=== PATIENT | female | born 1975 | race African-American/Black ===

== ENCOUNTER 2016-10-02 10:22 | Emergency (ER) | payer MEDICAID ==
[2016-06-20 19:53] VITALS: BMI 24.2
[~2016-10-02 10:22] MED LIST: AMBIEN5 MG PO; BUSPAR5 MG; CARAFATE1 G PO; FLAGYL500 MG PO; GLUCOPHAGE500 MG PO; PRILOSEC20 MG PO; RISPERDAL0.25 MG PO; ZOFRAN8 MG PO
[2016-10-02 11:11] LABS: BASOPHILS 0.3 % (0.0-2.0); EOSINOPHILS 0.6 % (0-7); HEMATOCRIT 43.7 % (36.0-48.0); HEMOGLOBIN 14.5 g/dL (12-16); IMMATURE GRANULOCYTES 0.3 % (0-5); MCH 31.3 pg (26.0-34.0); MCHC 33.2 g/dL (31.0-37.0); MCV 94.2 fL (80.0-100.0); MEAN PLATELET VOLUME 9.1 fL (7.4-10.4); MONOCYTES 4.8 % (2-11); PLATELET COUNT 346 10x3/uL (130-400); RBC 4.64 10x6/uL (4.00-5.40); WBC 7.3 10x3/uL (4.8-10.8)
[2016-10-02 11:20] LABS: ALBUMIN 4.3 g/dL (3.4-5.0); ALKALINE PHOSPHATASE 95 U/L (46-116); ALT (SGPT) 20 U/L (10-68); AMYLASE - SERUM 105 U/L (25-115); BILIRUBIN - TOTAL 0.43 mg/dL (0.2-1.3); CALC OSMOLALITY 272 mosm/kg (275-300); CALCIUM 10.5 mg/dL (8.5-10.1); CARBON DIOXIDE 24.5 mmol/L (21.0-32.0); CHLORIDE - SERUM 100 mmol/L (98-107); CREATININE - SERUM 0.7 mg/dL (0.6-1.3); GLUCOSE 114 mg/dL (74-106); LIPASE 163 U/L (73-393); POTASSIUM - SERUM 4.2 mmol/L (3.5-5.1); PROTEIN - SERUM 9.4 g/dL (6.4-8.2); SODIUM 137 mmol/L (136-145); UREA NITROGEN 8 mg/dL (7-18); eGFR NON AFRICAN AMERICAN > 90 mL/min (90-120)
[2016-10-02 11:31] LABS: APPEARANCE HAZY (CLEAR); BACTERIA MODERATE /hpf (NONE SEEN); BILIRUBIN NEGATIVE (NEGATIVE); COLOR YELLOW (YELLOW); GLUCOSE NEGATIVE (NEGATIVE); KETONE MODERATE mg/dL (NEGATIVE); LEUKOCYTE ESTERASE TRACE (NEGATIVE); MUCUS >1+ /lpf (NONE SEEN); NITRITE NEGATIVE (NEGATIVE); PROTEIN TRACE mg/dL (NEGATIVE); SPECIFIC GRAVITY 1.015 (1.005-1.020); UROBILINOGEN NORMAL (NORMAL); WHITE CELLS - URINE OCC /hpf (0-5)
== END 2016-10-02 14:38 | disposition home or self-care (01) ==
LOC: D.ER 10:22
PROVIDERS: Emergency Medicine
DX: R10.9 Unspecified abdominal pain (principal); R05 Cough; E11.9 Type 2 diabetes mellitus without complications; K31.84 Gastroparesis; F41.9 Anxiety disorder, unspecified; K21.9 Gastro-esophageal reflux disease without esophagitis; G47.00 Insomnia, unspecified; K27.9 Peptic ulcer, site unspecified, unspecified as acute or chronic, without hemorrhage or perforation; F17.200 Nicotine dependence, unspecified, uncomplicated

== ENCOUNTER 2017-04-23 14:17 | Emergency (ER) | payer MEDICAID ==
[2016-06-20 19:53] VITALS: BMI 24.2
[2017-04-23 15:14] LABS: ALBUMIN 4.1 g/dL (3.4-5.0); ALKALINE PHOSPHATASE 67 U/L (46-116); ALT (SGPT) 18 U/L (10-68); BILIRUBIN - TOTAL 0.61 mg/dL (0.2-1.3); CALC OSMOLALITY 279 mosm/kg (275-300); CALCIUM 9.3 mg/dL (8.5-10.1); CARBON DIOXIDE 19.5 mmol/L (21.0-32.0); CHLORIDE - SERUM 104 mmol/L (98-107); CREATININE - SERUM 0.9 mg/dL (0.6-1.3); GLUCOSE 108 mg/dL (74-106); POTASSIUM - SERUM 3.6 mmol/L (3.5-5.1); PROTEIN - SERUM 8.4 g/dL (6.4-8.2); SODIUM 140 mmol/L (136-145); UREA NITROGEN 12 mg/dL (7-18); eGFR NON AFRICAN AMERICAN 73 mL/min (90-120)
[2017-04-23 15:19] LABS: BASOPHILS 0.3 % (0-2); EOSINOPHILS 0 % (0-7); HEMATOCRIT 41.3 % (36.0-48.0); HEMOGLOBIN 13.9 g/dL (12-16); IMMATURE GRANULOCYTES 0.1 % (0-5); LYMPHOCYTES 32.5 % (15-50); MCH 32.8 pg (26.0-34.0); MCHC 33.7 g/dL (31.0-37.0); MCV 97.4 fL (80.0-100.0); MEAN PLATELET VOLUME 9.2 fL (7.4-10.4); MONOCYTES 4.8 % (2-11); NEUTROPHILS 62.3 % (40-80); PLATELET COUNT 323 10x3/uL (130-400); RBC 4.24 10x6/uL (4.00-5.40); RDW 12.8 % (11.5-14.5); WBC 7.6 10x3/uL (4.8-10.8)
[2017-04-23 15:26] LABS: CKMB 0.4 U/L (0.0-3.6); CREATINE KINASE 98 UL (21-215); TROPONIN-I < 0.017 ng/mL (0.000-0.060)
== END 2017-04-23 18:37 | disposition home or self-care (01) ==
LOC: D.ER 14:17
PROVIDERS: Emergency Medicine
DX: R07.89 Other chest pain (principal); T67.5XXA Heat exhaustion, unspecified, initial encounter; X58.XXXA Exposure to other specified factors, initial encounter; Y93.89 Activity, other specified; Y92.89 Other specified places as the place of occurrence of the external cause; E86.0 Dehydration; R10.9 Unspecified abdominal pain; R00.2 Palpitations; R06.00 Dyspnea, unspecified; E11.9 Type 2 diabetes mellitus without complications; K27.9 Peptic ulcer, site unspecified, unspecified as acute or chronic, without hemorrhage or perforation; K21.9 Gastro-esophageal reflux disease without esophagitis; F17.200 Nicotine dependence, unspecified, uncomplicated

== ENCOUNTER 2017-05-04 06:01 | Emergency (ER) | payer MEDICAID ==
[2016-06-20 19:53] VITALS: BMI 24.2
[2017-05-04 07:18] LABS: BASOPHILS 0.3 % (0-2); EOSINOPHILS 0.6 % (0-7); HEMATOCRIT 38.4 % (36.0-48.0); HEMOGLOBIN 12.9 g/dL (12-16); IMMATURE GRANULOCYTES 1.2 % (0-5); LYMPHOCYTES 30.4 % (15-50); MCH 33.1 pg (26.0-34.0); MCHC 33.6 g/dL (31.0-37.0); MCV 98.5 fL (80.0-100.0); NEUTROPHILS 61.5 % (40-80); PLATELET COUNT 305 10x3/uL (130-400); RDW 12.9 % (11.5-14.5); WBC 8.8 10x3/uL (4.8-10.8)
[2017-05-04 07:46] LABS: ALBUMIN 4.2 g/dL (3.4-5.0); ANION GAP 16.3 mmol/L (8-16); BILIRUBIN - TOTAL 0.7 mg/dL (0.2-1.3); CALCIUM 9.2 mg/dL (8.5-10.1); CREATININE - SERUM 0.9 mg/dL (0.6-1.3); POTASSIUM - SERUM 3.3 mmol/L (3.5-5.1); PROTEIN - SERUM 7.9 g/dL (6.4-8.2)
== END 2017-05-04 11:18 | disposition home or self-care (01) ==
LOC: D.ER 06:01
PROVIDERS: Emergency Medicine Emergency Medical Services
DX: R10.9 Unspecified abdominal pain (principal); R11.10 Vomiting, unspecified; E87.6 Hypokalemia; E11.9 Type 2 diabetes mellitus without complications; K21.9 Gastro-esophageal reflux disease without esophagitis; F17.200 Nicotine dependence, unspecified, uncomplicated

== ENCOUNTER 2017-05-05 06:06 | Emergency (ER) | payer MEDICAID ==
[2016-06-20 19:53] VITALS: BMI 24.2
== END 2017-05-05 09:00 | disposition home or self-care (01) ==
LOC: D.ER 06:06
DX: R11.10 Vomiting, unspecified (principal); R19.7 Diarrhea, unspecified; K21.9 Gastro-esophageal reflux disease without esophagitis; E11.9 Type 2 diabetes mellitus without complications; F17.200 Nicotine dependence, unspecified, uncomplicated

== ENCOUNTER 2017-05-06 09:51 | Emergency (ER) | payer MEDICAID ==
[2016-06-20 19:53] VITALS: BMI 24.2
[2017-05-06 10:20] LABS: BASOPHILS 0.1 % (0-2); EOSINOPHILS 0 % (0-7); HEMATOCRIT 45.5 % (36.0-48.0); HEMOGLOBIN 15.8 g/dL (12-16); IMMATURE GRANULOCYTES 0.3 % (0-5); LYMPHOCYTES 14.9 % (15-50); MCH 33.5 pg (26.0-34.0); MCHC 34.7 g/dL (31.0-37.0); MCV 96.4 fL (80.0-100.0); MEAN PLATELET VOLUME 9.1 fL (7.4-10.4); MONOCYTES 8.3 % (2-11); NEUTROPHILS 76.4 % (40-80); RBC 4.72 10x6/uL (4.00-5.40); RDW 12.9 % (11.5-14.5)
[2017-05-06 10:22] LABS: PLATELET COUNT 373 10x3/uL (130-400)
[2017-05-06 10:45] LABS: ALBUMIN 4.9 g/dL (3.4-5.0); BILIRUBIN - TOTAL 0.98 mg/dL (0.2-1.3); CALCIUM 10.2 mg/dL (8.5-10.1); CARBON DIOXIDE 26.4 mmol/L (21.0-32.0); CREATININE - SERUM 1.1 mg/dL (0.6-1.3); POTASSIUM - SERUM 3.4 mmol/L (3.5-5.1); PROTEIN - SERUM 9.3 g/dL (6.4-8.2)
[2017-05-06 11:18] LABS: APPEARANCE CLOUDY (CLEAR); BILIRUBIN NEGATIVE (NEGATIVE); COLOR DK YELLOW (YELLOW); GLUCOSE 50 mg/dL (NEGATIVE); KETONE MODERATE mg/dL (NEGATIVE); LEUKOCYTE ESTERASE NEGATIVE (NEGATIVE); NITRITE NEGATIVE (NEGATIVE); PROTEIN 2+ mg/dL (NEGATIVE); SPECIFIC GRAVITY 1.025 (1.005-1.020); UROBILINOGEN NORMAL (NORMAL)
[2017-05-06 11:23] LABS: AMORPHOUS SEDIMENT >1+ /lpf (NONE SEEN); BACTERIA MODERATE /hpf (NONE SEEN); EPITHELIAL CELLS 25-50 /hpf (0-5); MUCUS >1+ /lpf (NONE SEEN); RED CELLS - URINE OCC /hpf (0-5); WHITE CELLS - URINE 0-5 /hpf (0-5)
== END 2017-05-06 13:15 | disposition home or self-care (01) ==
LOC: D.ER 09:51
PROVIDERS: Emergency Medicine
DX: K52.9 Noninfective gastroenteritis and colitis, unspecified (principal); E86.0 Dehydration; R11.2 Nausea with vomiting, unspecified; R10.9 Unspecified abdominal pain; E11.9 Type 2 diabetes mellitus without complications; F17.200 Nicotine dependence, unspecified, uncomplicated

== ENCOUNTER 2017-09-02 08:22 | Emergency (ER) | payer MEDICAID ==
[2016-06-20 19:53] VITALS: BMI 24.2
[2017-09-02 09:13] LABS: BASOPHILS 0.2 % (0-2); EOSINOPHILS 0.1 % (0-7); HEMOGLOBIN 13.9 g/dL (12-16); IMMATURE GRANULOCYTES 0.3 % (0-5); LYMPHOCYTES 18.8 % (15-50); MCH 33.6 pg (26.0-34.0); MCHC 33.9 g/dL (31.0-37.0); MEAN PLATELET VOLUME 9.2 fL (7.4-10.4); MONOCYTES 4.2 % (2-11); NEUTROPHILS 76.4 % (40-80); PLATELET COUNT 369 10x3/uL (130-400); RBC 4.14 10x6/uL (4.00-5.40); RDW 12.9 % (11.5-14.5); WBC 9.9 10x3/uL (4.8-10.8)
[2017-09-02 09:33] LABS: ALBUMIN 4.3 g/dL (3.4-5.0); ALKALINE PHOSPHATASE 76 U/L (46-116); ALT (SGPT) 15 U/L (10-68); AMYLASE - SERUM 88 U/L (25-115); BILIRUBIN - TOTAL 0.58 mg/dL (0.2-1.3); CALC OSMOLALITY 275 mosm/kg (275-300); CALCIUM 9.6 mg/dL (8.5-10.1); CARBON DIOXIDE 19.9 mmol/L (21.0-32.0); CHLORIDE - SERUM 102 mmol/L (98-107); CREATININE - SERUM 0.6 mg/dL (0.6-1.3); GLUCOSE 143 mg/dL (74-106); LIPASE 98 U/L (73-393); POTASSIUM - SERUM 4.4 mmol/L (3.5-5.1); PROTEIN - SERUM 8.3 g/dL (6.4-8.2); SODIUM 138 mmol/L (136-145); UREA NITROGEN 8 mg/dL (7-18); eGFR NON AFRICAN AMERICAN > 90 mL/min (90-120)
[2017-09-02 11:09] LABS: APPEARANCE HAZY (CLEAR); BILIRUBIN NEGATIVE (NEGATIVE); COLOR YELLOW (YELLOW); GLUCOSE 250 mg/dL (NEGATIVE); KETONE LARGE mg/dL (NEGATIVE); NITRITE NEGATIVE (NEGATIVE); PROTEIN NEGATIVE (NEGATIVE); SPECIFIC GRAVITY 1.015 (1.005-1.020); UROBILINOGEN NORMAL (NORMAL)
[2017-09-02 12:05] LABS: UDS - AMPHET NEGATIVE QUAL (NEGATIVE); UDS - BARB NEGATIVE QUAL (NEGATIVE); UDS - BENZO NEGATIVE QUAL (NEGATIVE); UDS - COCAINE NEGATIVE QUAL (NEGATIVE); UDS - OPIATE NEGATIVE QUAL (NEGATIVE); UDS - PCP NEGATIVE QUAL (NEGATIVE); UDS - THC POSITIVE QUAL (NEGATIVE)
== END 2017-09-02 14:20 | disposition home or self-care (01) ==
LOC: D.ER 08:22
PROVIDERS: Family Medicine
DX: R11.10 Vomiting, unspecified (principal); F12.10 Cannabis abuse, uncomplicated; E11.43 Type 2 diabetes mellitus with diabetic autonomic (poly)neuropathy; K31.84 Gastroparesis; F17.200 Nicotine dependence, unspecified, uncomplicated

== ENCOUNTER 2017-10-02 10:03 | Emergency (ER) | payer MEDICAID ==
[2016-06-20 19:53] VITALS: BMI 24.2
[2017-10-02 10:32] LABS: APPEARANCE CLEAR (CLEAR); BILIRUBIN NEGATIVE (NEGATIVE); COLOR YELLOW (YELLOW); GLUCOSE NEGATIVE (NEGATIVE); KETONE NEGATIVE (NEGATIVE); NITRITE NEGATIVE (NEGATIVE); PROTEIN NEGATIVE (NEGATIVE); SPECIFIC GRAVITY 1.005 (1.005-1.020); UROBILINOGEN NORMAL (NORMAL)
[2017-10-02 10:33] LABS: BACTERIA FEW /hpf (NONE SEEN); EPITHELIAL CELLS 0-5 /hpf (0-5); RED CELLS - URINE NONE SEEN /hpf (0-5); WHITE CELLS - URINE 0-5 /hpf (0-5)
[2017-10-02 10:36] LABS: BASOPHILS 0.2 % (0-2); EOSINOPHILS 0.6 % (0-7); HEMATOCRIT 42.2 % (36.0-48.0); HEMOGLOBIN 14.1 g/dL (12-16); IMMATURE GRANULOCYTES 0.2 % (0-5); LYMPHOCYTES 32.8 % (15-50); MCH 34.1 pg (26.0-34.0); MCHC 33.4 g/dL (31.0-37.0); MCV 101.9 fL (80.0-100.0); MONOCYTES 8.4 % (2-11); NEUTROPHILS 57.8 % (40-80); PLATELET COUNT 331 10x3/uL (130-400); RBC 4.14 10x6/uL (4.00-5.40)
[2017-10-02 11:10] LABS: HCG SERUM NEGATIVE (NEGATIVE)
[2017-10-02 11:12] LABS: ALBUMIN 3.7 g/dL (3.4-5.0); ALKALINE PHOSPHATASE 66 U/L (46-116); ALT (SGPT) 18 U/L (10-68); AMYLASE - SERUM 99 U/L (25-115); BILIRUBIN - TOTAL 0.26 mg/dL (0.2-1.3); CALC OSMOLALITY 272 mosm/kg (275-300); CARBON DIOXIDE 25.1 mmol/L (21.0-32.0); CHLORIDE - SERUM 105 mmol/L (98-107); CREATININE - SERUM 0.6 mg/dL (0.6-1.3); GLUCOSE 104 mg/dL (74-106); LIPASE 119 U/L (73-393); POTASSIUM - SERUM 3.8 mmol/L (3.5-5.1); PROTEIN - SERUM 7.4 g/dL (6.4-8.2); SODIUM 138 mmol/L (136-145); UREA NITROGEN 5 mg/dL (7-18); eGFR NON AFRICAN AMERICAN > 90 mL/min (90-120)
== END 2017-10-02 14:50 | disposition home or self-care (01) ==
LOC: D.ER 10:03
PROVIDERS: Emergency Medicine
DX: R11.10 Vomiting, unspecified (principal); K31.84 Gastroparesis; F17.200 Nicotine dependence, unspecified, uncomplicated; K21.9 Gastro-esophageal reflux disease without esophagitis; E11.9 Type 2 diabetes mellitus without complications

== ENCOUNTER 2017-12-03 20:19 | Emergency (ER) | payer MEDICAID ==
[2016-06-20 19:53] VITALS: BMI 24.2
== END 2017-12-04 00:40 | disposition home or self-care (01) ==
LOC: D.ER 20:19
DX: S00.83XA Contusion of other part of head, initial encounter (principal); Y04.2XXA Assault by strike against or bumped into by another person, initial encounter; Y93.89 Activity, other specified; Y92.019 Unspecified place in single-family (private) house as the place of occurrence of the external cause; F17.200 Nicotine dependence, unspecified, uncomplicated; K21.9 Gastro-esophageal reflux disease without esophagitis; E11.9 Type 2 diabetes mellitus without complications

== ENCOUNTER 2017-12-04 03:44 | Emergency (ER) | payer MEDICAID ==
[2016-06-20 19:53] VITALS: BMI 24.2
[2017-12-04 04:27] LABS: HCG URINE NEGATIVE (NEGATIVE)
[2017-12-04 04:28] LABS: UDS - AMPHET NEGATIVE QUAL (NEGATIVE); UDS - BARB NEGATIVE QUAL (NEGATIVE); UDS - BENZO NEGATIVE QUAL (NEGATIVE); UDS - COCAINE NEGATIVE QUAL (NEGATIVE); UDS - OPIATE NEGATIVE QUAL (NEGATIVE); UDS - PCP NEGATIVE QUAL (NEGATIVE); UDS - THC POSITIVE QUAL (NEGATIVE)
[2017-12-04 04:28] LABS: BASOPHILS 0.3 % (0-2); EOSINOPHILS 0.9 % (0-7); HEMATOCRIT 40.3 % (36.0-48.0); HEMOGLOBIN 13.1 g/dL (12-16); IMMATURE GRANULOCYTES 0.1 % (0-5); LYMPHOCYTES 37.5 % (15-50); MCH 32.9 pg (26.0-34.0); MCHC 32.5 g/dL (31.0-37.0); MCV 101.3 fL (80.0-100.0); MEAN PLATELET VOLUME 9.3 fL (7.4-10.4); MONOCYTES 9.7 % (2-11); NEUTROPHILS 51.5 % (40-80); PLATELET COUNT 326 10x3/uL (130-400); RBC 3.98 10x6/uL (4.00-5.40); RDW 12.7 % (11.5-14.5)
[2017-12-04 04:44] LABS: ALBUMIN 3.9 g/dL (3.4-5.0); ALKALINE PHOSPHATASE 69 U/L (46-116); ALT (SGPT) 12 U/L (10-68); BILIRUBIN - TOTAL 0.34 mg/dL (0.2-1.3); CALC OSMOLALITY 272 mosm/kg (275-300); CALCIUM 9.4 mg/dL (8.5-10.1); CARBON DIOXIDE 25.7 mmol/L (21.0-32.0); CHLORIDE - SERUM 103 mmol/L (98-107); CREATININE - SERUM 0.6 mg/dL (0.6-1.3); GLUCOSE 105 mg/dL (74-106); POTASSIUM - SERUM 3.7 mmol/L (3.5-5.1); SODIUM 137 mmol/L (136-145); UREA NITROGEN 9 mg/dL (7-18); eGFR NON AFRICAN AMERICAN > 90 mL/min (90-120)
[2017-12-04 05:07] LABS: APPEARANCE CLEAR (CLEAR); BILIRUBIN NEGATIVE (NEGATIVE); COLOR YELLOW (YELLOW); GLUCOSE NEGATIVE (NEGATIVE); KETONE MODERATE mg/dL (NEGATIVE); NITRITE NEGATIVE (NEGATIVE); PROTEIN NEGATIVE (NEGATIVE); UROBILINOGEN NORMAL (NORMAL)
== END 2017-12-04 10:05 ==
LOC: D.ER 03:44
PROVIDERS: Family Medicine
DX: R45.850 Homicidal ideations (principal); K21.9 Gastro-esophageal reflux disease without esophagitis

== ENCOUNTER 2017-12-29 06:53 | Emergency (ER) | payer MEDICAID ==
[2016-06-20 19:53] VITALS: BMI 24.2
[2017-12-29 07:41] LABS: BASOPHILS 0.2 % (0-2); EOSINOPHILS 0.8 % (0-7); HEMATOCRIT 39.9 % (36.0-48.0); HEMOGLOBIN 13.1 g/dL (12-16); IMMATURE GRANULOCYTES 0.9 % (0-5); LYMPHOCYTES 23.7 % (15-50); MCH 33.5 pg (26.0-34.0); MCHC 32.8 g/dL (31.0-37.0); MONOCYTES 5.7 % (2-11); NEUTROPHILS 68.7 % (40-80); RBC 3.91 10x6/uL (4.00-5.40); WBC 12.4 10x3/uL (4.8-10.8)
[2017-12-29 07:43] LABS: PLATELET COUNT 406 10x3/uL (130-400)
[2017-12-29 07:55] LABS: ALKALINE PHOSPHATASE 86 U/L (46-116); ALT (SGPT) 16 U/L (10-68); BILIRUBIN - TOTAL 0.31 mg/dL (0.2-1.3); CALC OSMOLALITY 278 mosm/kg (275-300); CALCIUM 8.9 mg/dL (8.5-10.1); CARBON DIOXIDE 24.5 mmol/L (21.0-32.0); CHLORIDE - SERUM 103 mmol/L (98-107); CREATININE - SERUM 0.9 mg/dL (0.6-1.3); GLUCOSE 124 mg/dL (74-106); POTASSIUM - SERUM 3.5 mmol/L (3.5-5.1); PROTEIN - SERUM 8.5 g/dL (6.4-8.2); SODIUM 139 mmol/L (136-145); UREA NITROGEN 13 mg/dL (7-18); eGFR NON AFRICAN AMERICAN 73 mL/min (90-120)
[2017-12-29 08:05] LABS: CHOL - HDL RATIO 5.6 ratio (2.3-4.1); CHOLESTEROL, TOTAL 250 mg/dL (0-200); CKMB 0.4 U/L (0.0-3.6); CREATINE KINASE 72 UL (21-215); HDL CHOLESTEROL 45 mg/dL (32-96); LDL CHOLESTEROL 187 mg/dL (0-100); LDL-HDL RATIO 4.2 ratio (1.5-3.5); TRIGLYCERIDE 92 mg/dL (30-200)
[2017-12-29 08:09] LABS: TROPONIN-I < 0.017 ng/mL (0.000-0.060)
[2017-12-30] MEDS ORDERED: ZOLOFT100 MG PO (14:42)
[2017-12-30] MEDS ORDERED: HALDOL5 MG PO (14:42)
== END 2017-12-29 09:07 | disposition home or self-care (01) ==
LOC: D.ER 06:53
PROVIDERS: Family Medicine
DX: R11.10 Vomiting, unspecified (principal); R07.9 Chest pain, unspecified; R10.9 Unspecified abdominal pain; F17.200 Nicotine dependence, unspecified, uncomplicated; K21.9 Gastro-esophageal reflux disease without esophagitis

== ENCOUNTER 2017-12-30 01:18 | Inpatient (IN) | payer MEDICAID ==
[~2017-12-30] VITALS: Ht 167.6 cm; Wt 53.5 kg
--- NOTE | ~2017-12-30 | DS ---
PATIENT:MAGALI CAMPOS :75 MEDICAL RECORD: [id number] DISCHARGE SUMMARY ADMISSION DATE: 12/30/17 DISCHARGE DATE: 01/02/18 DATE OF ADMISSION: 12/30/2017 DATE OF DISCHARGE: 01/02/2018 ADMISSION DIAGNOSES: Abdominal pain, nausea and vomiting, marijuana use and abuse, chronic gastroparesis. DISCHARGE DIAGNOSES: Chronic gastroparesis, schizophrenia, chronic nausea and vomiting resolved, hypertension. HOSPITAL COURSE: The patient had an uneventful hospital course. Had nausea and vomiting at home. CT scan showed no significant abnormalities. History of gastroparesis. She is followed by primary care and GI doctor in [place], has had recurrent problems with this. NG tube was placed. Symptoms resolved. NG tube clamped. Tolerated clear liquid diet. NG tube discontinued. Had a nuclear gastric emptying scan, showed findings consistent with gastroparesis. Cleared for discharge by GI. The patient anxious to go home, tolerating a clear liquid diet. CONSULTS: GI. The patient is discharged home in significantly improved condition. She reports she has a followup next week with her primary care physician, will also follow up with her associate counsel in [place]. She has a roommate at home. Declines any other home needs. She is discharged to home in significantly improved condition. MEDICATIONS: Per med rec. See chart for further details. PHYSICAL EXAMINATION: VITAL SIGNS ON DISCHARGE: Temperature 98.2, blood pressure 134/68, heart rate 80, respirations 16, O2 sat 97% on room air. GENERAL: Alert, oriented, no acute distress. Has tolerated multiple meals, clear liquid. She is ambulating independently, has been outside. LABORATORY DATA: CBC on discharge: White count 6.1, hemoglobin 11, hematocrit 33.5, platelets 281. Chemistry: Sodium 140, potassium 4.2, chloride 105, bicarbonate 25.8, BUN 9, creatinine 0.8, glucose 111. Blood cultures were negative. The patient will follow up with her primary care and associate counsel as above. DIET: Clear liquid diet, advance as tolerated. TRANSINT:[id number] Voice Confirmation ID: [id number] DOCUMENT ID: [id number] DISCHARGE SUMMARY REPORT [id number] BETHAIDA MACEDO DO at 0805 CC: [id number] DICTATION DATE: 01/02/18 2664 STRAW HAT WASHER OPERATOR: 01/03/18 0942 DIS IN 01/02/18 [facility] [address] [place] [address]
[2017-12-30 01:44] LABS: BASOPHILS 0.1 % (0-2); EOSINOPHILS 0 % (0-7); HEMOGLOBIN 13.5 g/dL (12-16); IMMATURE GRANULOCYTES 0.4 % (0-5); LYMPHOCYTES 8.7 % (15-50); MCHC 34.6 g/dL (31.0-37.0); MEAN PLATELET VOLUME 8.7 fL (7.4-10.4); MONOCYTES 4.7 % (2-11); NEUTROPHILS 86.1 % (40-80); PLATELET COUNT 459 10x3/uL (130-400); RBC 3.97 10x6/uL (4.00-5.40); RDW 12.5 % (11.5-14.5)
[2017-12-30 01:48] LABS: MCV 98.2 fL (80.0-100.0); WBC 17.9 10x3/uL (4.8-10.8)
[2017-12-30 02:02] LABS: APPEARANCE HAZY (CLEAR); BILIRUBIN NEGATIVE (NEGATIVE); COLOR YELLOW (YELLOW); GLUCOSE 250 mg/dL (NEGATIVE); KETONE LARGE mg/dL (NEGATIVE); NITRITE NEGATIVE (NEGATIVE); PROTEIN 3+ mg/dL (NEGATIVE); UROBILINOGEN NORMAL (NORMAL)
[2017-12-30 02:04] LABS: ALBUMIN 4.5 g/dL (3.4-5.0); ANION GAP 19.5 mmol/L (8-16); BILIRUBIN - TOTAL 0.5 mg/dL (0.2-1.3); CALCIUM 10.1 mg/dL (8.5-10.1); CARBON DIOXIDE 26.1 mmol/L (21.0-32.0); CREATININE - SERUM 0.9 mg/dL (0.6-1.3); POTASSIUM - SERUM 3.6 mmol/L (3.5-5.1); PROTEIN - SERUM 9.7 g/dL (6.4-8.2)
[2017-12-30 02:04] LABS: BACTERIA MODERATE /hpf (NONE SEEN); EPITHELIAL CELLS 0-5 /hpf (0-5); RED CELLS - URINE 0-5 /hpf (0-5); WHITE CELLS - URINE 0-5 /hpf (0-5)
[2017-12-30 08:41] LABS: UDS - AMPHET NEGATIVE QUAL (NEGATIVE); UDS - BARB NEGATIVE QUAL (NEGATIVE); UDS - BENZO NEGATIVE QUAL (NEGATIVE); UDS - COCAINE NEGATIVE QUAL (NEGATIVE); UDS - OPIATE NEGATIVE QUAL (NEGATIVE); UDS - PCP NEGATIVE QUAL (NEGATIVE); UDS - THC POSITIVE QUAL (NEGATIVE)
[2017-12-30 09:44] VITALS: BP 172/100; BMI 19.0
[2017-12-30 12:49] VITALS: BP 175/99
[2017-12-30 13:13] VITALS: BMI 19.0
[2017-12-30] MEDS ORDERED: ZOLOFT100 MG PO (14:42)
[2017-12-30] MEDS ORDERED: HALDOL5 MG PO (14:42)
[2017-12-30 15:34] LABS: CREATINE KINASE 195 UL (21-215); TROPONIN-I < 0.017 ng/mL (0.000-0.060)
[2017-12-30 15:55] VITALS: BP 174/96
[2017-12-30 17:24] VITALS: Ht 167.6 cm; Wt 53.5 kg
[2017-12-30 20:46] VITALS: BP 169/100
[2017-12-30 20:47] LABS: CKMB 0.8 U/L (0.0-3.6); CREATINE KINASE 180 UL (21-215)
[2017-12-30 20:55] LABS: TROPONIN-I < 0.017 ng/mL (0.000-0.060)
[2017-12-31] VITALS (7 sets, daily range): BP systolic 108–166; BP diastolic 51–107
[2017-12-31 06:28] LABS: BASOPHILS 0.1 % (0-2); EOSINOPHILS 0.1 % (0-7); HEMATOCRIT 38.9 % (36.0-48.0); HEMOGLOBIN 13.4 g/dL (12-16); IMMATURE GRANULOCYTES 0.3 % (0-5); LYMPHOCYTES 22.2 % (15-50); MCH 33.5 pg (26.0-34.0); MCHC 34.4 g/dL (31.0-37.0); MCV 97.3 fL (80.0-100.0); MEAN PLATELET VOLUME 9.1 fL (7.4-10.4); MONOCYTES 8.3 % (2-11); PLATELET COUNT 414 10x3/uL (130-400); RDW 12.6 % (11.5-14.5)
[2017-12-31 06:29] LABS: WBC 11.3 10x3/uL (4.8-10.8)
[2017-12-31 06:49] LABS: ALBUMIN 3.9 g/dL (3.4-5.0); ALKALINE PHOSPHATASE 76 U/L (46-116); ALT (SGPT) 17 U/L (10-68); CALC OSMOLALITY 275 mosm/kg (275-300); CALCIUM 9.5 mg/dL (8.5-10.1); CARBON DIOXIDE 26.3 mmol/L (21.0-32.0); CHLORIDE - SERUM 100 mmol/L (98-107); CREATININE - SERUM 0.7 mg/dL (0.6-1.3); GLUCOSE 151 mg/dL (74-106); LIPASE 428 U/L (73-393); POTASSIUM - SERUM 3.4 mmol/L (3.5-5.1); PROTEIN - SERUM 8.5 g/dL (6.4-8.2); SODIUM 136 mmol/L (136-145); T4 THYROXIN - FREE 0.87 ng/dL (0.76-1.46); UREA NITROGEN 16 mg/dL (7-18); eGFR NON AFRICAN AMERICAN > 90 mL/min (90-120)
[2017-12-31 06:50] LABS: AMYLASE - SERUM 186 U/L (25-115)
[2018-01-01 04:20] VITALS: BP 122/67
[2018-01-01 05:07] LABS: BASOPHILS 0.3 % (0-2); EOSINOPHILS 0.7 % (0-7); HEMATOCRIT 35.9 % (36.0-48.0); IMMATURE GRANULOCYTES 0.1 % (0-5); LYMPHOCYTES 40.4 % (15-50); MCH 32.8 pg (26.0-34.0); MCHC 33.4 g/dL (31.0-37.0); MCV 98.1 fL (80.0-100.0); MONOCYTES 11.1 % (2-11); NEUTROPHILS 47.4 % (40-80); PLATELET COUNT 342 10x3/uL (130-400); RBC 3.66 10x6/uL (4.00-5.40); RDW 12.5 % (11.5-14.5)
[2018-01-01 05:11] LABS: WBC 7.2 10x3/uL (4.8-10.8)
[2018-01-01 05:26] LABS: ALBUMIN 3.1 g/dL (3.4-5.0); ALKALINE PHOSPHATASE 64 U/L (46-116); ALT (SGPT) 16 U/L (10-68); BILIRUBIN - TOTAL 0.69 mg/dL (0.2-1.3); CALC OSMOLALITY 276 mosm/kg (275-300); CALCIUM 8.7 mg/dL (8.5-10.1); CARBON DIOXIDE 26.6 mmol/L (21.0-32.0); CHLORIDE - SERUM 102 mmol/L (98-107); CREATININE - SERUM 0.7 mg/dL (0.6-1.3); GLUCOSE 121 mg/dL (74-106); LIPASE 156 U/L (73-393); POTASSIUM - SERUM 3.3 mmol/L (3.5-5.1); PROTEIN - SERUM 6.8 g/dL (6.4-8.2); SODIUM 138 mmol/L (136-145); UREA NITROGEN 12 mg/dL (7-18); eGFR NON AFRICAN AMERICAN > 90 mL/min (90-120)
[2018-01-01 05:31] LABS: AMYLASE - SERUM 98 U/L (25-115)
[2018-01-01] MEDS ORDERED: ATIVAN1 MG PO (06:16)
[2018-01-01 08:00] VITALS: BP 104/66
[2018-01-01 15:31] VITALS: BP 130/72
[2018-01-01 20:00] VITALS: BP 133/76
[2018-01-02] VITALS: BP 108/51
[2018-01-02 04:00] VITALS: BP 110/88
[2018-01-02 07:41] LABS: BASOPHILS 0.3 % (0-2); EOSINOPHILS 1.5 % (0-7); HEMATOCRIT 33.5 % (36.0-48.0); IMMATURE GRANULOCYTES 0.2 % (0-5); MCH 32.4 pg (26.0-34.0); MCHC 32.8 g/dL (31.0-37.0); MCV 98.8 fL (80.0-100.0); MEAN PLATELET VOLUME 8.6 fL (7.4-10.4); MONOCYTES 8.9 % (2-11); NEUTROPHILS 43.1 % (40-80); PLATELET COUNT 281 10x3/uL (130-400); RBC 3.39 10x6/uL (4.00-5.40); RDW 12.6 % (11.5-14.5); WBC 6.1 10x3/uL (4.8-10.8)
[2018-01-02 08:05] LABS: ALBUMIN 3.2 g/dL (3.4-5.0); ALKALINE PHOSPHATASE 58 U/L (46-116); ALT (SGPT) 15 U/L (10-68); BILIRUBIN - TOTAL 0.47 mg/dL (0.2-1.3); CALC OSMOLALITY 278 mosm/kg (275-300); CALCIUM 8.5 mg/dL (8.5-10.1); CARBON DIOXIDE 25.8 mmol/L (21.0-32.0); CHLORIDE - SERUM 105 mmol/L (98-107); CREATININE - SERUM 0.8 mg/dL (0.6-1.3); GLUCOSE 111 mg/dL (74-106); MAGNESIUM - SERUM 1.9 mg/dL (1.8-2.4); PHOSPHOROUS 3.6 mg/dL (2.5-4.9); POTASSIUM - SERUM 4.2 mmol/L (3.5-5.1); PROTEIN - SERUM 6.7 g/dL (6.4-8.2); SODIUM 140 mmol/L (136-145); UREA NITROGEN 9 mg/dL (7-18); eGFR NON AFRICAN AMERICAN 83 mL/min (90-120)
[2018-01-02 08:13] VITALS: BP 113/63
[2018-01-02 11:46] VITALS: BP 134/68
[2018-01-02] MEDS ORDERED: FLAGYL500 MG PO (13:49)
[2018-01-02] MEDS ORDERED: LOPRESSOR25 MG PO (13:50)
== END 2018-01-02 17:13 | disposition home or self-care (01) | DRG 392 ==
LOC: D.ER 01:18 → D.MS 07:00
PROVIDERS: Family Medicine; Internal Medicine Gastroenterology
DX: K31.84 Gastroparesis (principal); F12.10 Cannabis abuse, uncomplicated; F20.9 Schizophrenia, unspecified; I10 Essential (primary) hypertension; E11.9 Type 2 diabetes mellitus without complications; F17.200 Nicotine dependence, unspecified, uncomplicated; N76.0 Acute vaginitis

== ENCOUNTER 2018-08-29 08:54 | Inpatient (IN) | payer MEDICAID ==
[~2018-08-29] VITALS: Ht 167.6 cm; Wt 53.5 kg
[2018-08-29] VITALS (8 sets, daily range): BP systolic 127–175; BP diastolic 79–107; BMI 19.0
--- NOTE | ~2018-08-29 | MORECARE ---
CASE MANAGEMENT DISCHARGE SUMMARY PATIENT: MAGALI CAMPOS UNIT: [id number] ADM DATE: 08/30/18 AGE: 42 : 75 SEX: F ROOM/BED: D.1203 AUTHOR: HERMESDOC PHYSICIAN: REFERRING PHYSICIAN: ARTIE LUJAN MD DATE OF SERVICE: 09/01/18 Discharge Plan Patient Name: MAGALI CAMPOS Facility: [facility]:[place] : 1975 Planned Disposition: Home Anticipated Discharge Date: Discharge Date: Expected LOS: Initial Reviewer: [email or web address] Initial Review Date: 08/30/2018 Generated: 09/01/18 6:15 pm Comments DCP- Discharge Planning Updated by [email or web address]: Indiana Mcmillan on 09/01/18 4:[address] Patient Name: MAGALI CAMPOS Admission Status: ER Accout number: [id number] Admission Date: 08-30-2018 : 1975 Admission Diagnosis:NAUSEA WITH VOMITING, UNSPECIFIED Attending: ARTIE LUJAN Current LOS: 2 Anticipated DC Date: Planned Disposition: Home Primary Insurance: MEDICAID [place] Discharge Planning Comments: CM MET WITH PATIENT PER HER REQUEST. SHE IS CONCERNED ABOUT A PLACE TO LIVE AFTER TOMORROW. I GAVE HER A LIST OF SHELTERS AND INFORMATION ON GOVERNMENT HOUSING. PATIENT STATES HER COUSIN WILL PICK HER UP WHEN SHE IS DISCHARGED TODAY. Dragline Operator Helper: Indiana Mcmillan DCP- Discharge Planning Updated by [email or web address]: Shirley Newman on 08/31/18 12:[address] Late Entry 08/30/18 @ 1820 Patient Name: MAGALI CAMPOS Admission Status: ER Accout number: [id number] Admission Date: 08-30-2018 : 1975 Admission Diagnosis: Attending: ARTIE LUJAN Current LOS: 1 Anticipated DC Date: Planned Disposition: Home Primary Insurance: MEDICAID [place] Discharge Planning Comments: CM met with patient at bedside after obtaining verbal consent. Patient states she plans on returning home after discharge. Patient states she lives alone. Patient denies any discharge needs at this time. CM will continue to follow and assist as needed for discharge planning / needs. Dragline Operator Helper: Shirley Newman DCPIA - Discharge Planning Initial Assessment Updated by [email or web address]: Shirley Newman on 08/31/18 1:29 pm * Is the patient Alert and Oriented? Yes * How many steps to enter\exit or inside your home? * PCP Dr[facility] Wor[facility] * Pharmacy [facility] * Preadmission Environment Home Alone * ADLs Independent * Equipment None * List name and contact numbers for known caregivers / representatives who currently or will assist patient after discharge: Chad coburn [phone] * Verbal permission to speak to the caregivers and representatives has been obtained from the patient. N/A * Community resources currently utilized None * Additional services required to return to the preadmission environment? No * Can the patient safely return to the preadmission environment? Yes * Has this patient been hospitalized within the prior 30 days at any hospital? No Last DP export: 08/31/18 12:34 p Patient Name: MAGALI CAMPOS Page [phone] at 1715 All edits/amendments must be made on the electronic document DICTATION DATE: 09/01/181713 MANAGER CUSTOM: DAFNE 09/01/181713 RPT#: [id number] DC DATE: STATUS: ADM IN [facility] [address] [place] [address] END OF REPORT
--- NOTE | ~2018-08-29 | MORECARE ---
CASE MANAGEMENT DISCHARGE SUMMARY PATIENT: MAGALI CAMPOS UNIT: [id number] ADM DATE: 08/30/18 AGE: 42 : 75 SEX: F ROOM/BED: D.1203 AUTHOR: HERMES,DOC PHYSICIAN: REFERRING PHYSICIAN: ARTIE LUJAN MD DATE OF SERVICE: 08/31/18 Discharge Plan Patient Name: MAGALI CAMPOS Facility: [facility]:[place] : 1975 Planned Disposition: Home Anticipated Discharge Date: Discharge Date: Expected LOS: Initial Reviewer: [email or web address] Initial Review Date: 08/30/2018 Generated: 08/31/18 2:34 pm Comments DCP- Discharge Planning Updated by [email or web address]: Shirley Newman on 08/31/18 12:[address] Late Entry 08/30/18 @ 1820 Patient Name: MAGALI CAMPOS Admission Status: ER Accout number: [id number] Admission Date: 08-30-2018 : 1975 Admission Diagnosis: Attending: ARTIE LUJAN Current LOS: 1 Anticipated DC Date: Planned Disposition: Home Primary Insurance: MEDICAID [place] Discharge Planning Comments: CM met with patient at bedside after obtaining verbal consent. Patient states she plans on returning home after discharge. Patient states she lives alone. Patient denies any discharge needs at this time. CM will continue to follow and assist as needed for discharge planning / needs. Green Lumber Grader: Shirley Newman DCPIA - Discharge Planning Initial Assessment Updated by [email or web address]: Shirley Newman on 08/31/18 1:29 pm * Is the patient Alert and Oriented? Yes * How many steps to enter\exit or inside your home? * PCP Dr. Worley - [facility] * Pharmacy [facility] * Preadmission Environment Home Alone * ADLs Independent * Equipment None * List name and contact numbers for known caregivers / representatives who currently or will assist patient after discharge: Chad coburn [phone] * Verbal permission to speak to the caregivers and representatives has been obtained from the patient. N/A * Community resources currently utilized None * Additional services required to return to the preadmission environment? No * Can the patient safely return to the preadmission environment? Yes * Has this patient been hospitalized within the prior 30 days at any hospital? No Patient Name: MAGALI CAMPOS Page [phone] at 1334 All edits/amendments must be made on the electronic document DICTATION DATE: 08/31/181332 HUMAN RESOURCES BENEFITS ASSISTANT: DAFNE 08/31/183 RPT#: [id number] DC DATE: STATUS: ADM IN [facility] [address] [place] [address] END OF REPORT
--- NOTE | ~2018-08-29 | MORECARE ---
CASE MANAGEMENT DISCHARGE SUMMARY PATIENT: MAGALI CAMPOS UNIT: [id number] ADM DATE: 08/30/18 AGE: 42 : 75 SEX: F ROOM/BED: D.1203 AUTHOR: FRENCH MIRZA PHYSICIAN: REFERRING PHYSICIAN: ARTIE LUJAN MD DATE OF SERVICE: 09/02/18 Discharge Plan Patient Name: MAGALI CAMPOS Facility: [facility]:[place] : 1975 Planned Disposition: Home Anticipated Discharge Date: Discharge Date: 09/01/2018 Expected LOS: Initial Reviewer: [email or web address] Initial Review Date: 08/30/2018 Generated: 09/02/18 9:06 am Comments DCP- Discharge Planning Updated by [email or web address]: Indiana Mcmillan on 09/01/18 4:[address] Patient Name: MAGALI CAMPOS Admission Status: ER Accout number: [id number] Admission Date: 08-30-2018 : 1975 Admission Diagnosis:NAUSEA WITH VOMITING, UNSPECIFIED Attending: ARTIE LUJAN Current LOS: 2 Anticipated DC Date: Planned Disposition: Home Primary Insurance: MEDICAID [place] Discharge Planning Comments: CM MET WITH PATIENT PER HER REQUEST. SHE IS CONCERNED ABOUT A PLACE TO LIVE AFTER TOMORROW. I GAVE HER A LIST OF SHELTERS AND INFORMATION ON GOVERNMENT HOUSING. PATIENT STATES HER COUSIN WILL PICK HER UP WHEN SHE IS DISCHARGED TODAY. Acid Washer Operator: Indiana Mcmillan DCP- Discharge Planning Updated by [email or web address]: Shirley Newman on 08/31/18 12:[address] Late Entry 08/30/18 @ 1820 Patient Name: MAGALI CAMPOS Admission Status: ER Accout number: [id number] Admission Date: 08-30-2018 : 1975 Admission Diagnosis: Attending: ARTIE LUJAN Current LOS: 1 Anticipated DC Date: Planned Disposition: Home Primary Insurance: MEDICAID [place] Discharge Planning Comments: CM met with patient at bedside after obtaining verbal consent. Patient states she plans on returning home after discharge. Patient states she lives alone. Patient denies any discharge needs at this time. CM will continue to follow and assist as needed for discharge planning / needs. Acid Washer Operator: Shirley Trent DCPIA - Discharge Planning Initial Assessment Updated by [id number]: Shirley Newman on 08/31/18 1:29 pm * Is the patient Alert and Oriented? Yes * How many steps to enter\exit or inside your home? * PCP Dr[facility] Worley - [facility] * Pharmacy [facility] * Preadmission Environment Home Alone * ADLs Independent * Equipment None * List name and contact numbers for known caregivers / representatives who currently or will assist patient after discharge: Chad coburn [phone] * Verbal permission to speak to the caregivers and representatives has been obtained from the patient. N/A * Community resources currently utilized None * Additional services required to return to the preadmission environment? No * Can the patient safely return to the preadmission environment? Yes * Has this patient been hospitalized within the prior 30 days at any hospital? No Last DP export: 09/01/18 4:15 p Patient Name: MAGALI CAMPOS Page [id number] at 0806 All edits/amendments must be made on the electronic document DICTATION DATE: 09/02/18805 SANITATION MANAGER: DAFNE 09/02/18805 RPT#: [id number] DC DATE:09/01/18 STATUS: DIS IN [facility] [address] [place] [address] END OF REPORT
[~2018-08-29 08:54] MED LIST changes: +ATIVAN1 MG PO; +HALDOL5 MG PO; +LOPRESSOR25 MG PO; +ZOLOFT100 MG PO
[2018-08-29] MEDS ORDERED: [UNRECOGNIZED DRUG - REMARK] (09:01)
[2018-08-29 10:09] LABS: BASOPHILS 0.3 % (0-2); EOSINOPHILS 0.3 % (0-7); HEMOGLOBIN 13.3 g/dL (12-16); IMMATURE GRANULOCYTES 0.3 % (0-5); LYMPHOCYTES 19.5 % (15-50); MCH 34.1 pg (26.0-34.0); MCHC 33.3 g/dL (31.0-37.0); MCV 102.6 fL (80.0-100.0); MEAN PLATELET VOLUME 9.2 fL (7.4-10.4); MONOCYTES 3.4 % (2-11); NEUTROPHILS 76.2 % (40-80); PLATELET COUNT 333 10x3/uL (130-400); RDW 12.7 % (11.5-14.5); WBC 9.8 10x3/uL (4.8-10.8)
[2018-08-29 10:21] LABS: HCG SERUM NEGATIVE (NEGATIVE)
[2018-08-29 10:23] LABS: ALBUMIN 3.8 g/dL (3.4-5.0); ANION GAP 17.2 mmol/L (8-16); BILIRUBIN - TOTAL 0.38 mg/dL (0.2-1.3); CALCIUM 9.6 mg/dL (8.5-10.1); CARBON DIOXIDE 22.5 mmol/L (21.0-32.0); CREATININE - SERUM 0.9 mg/dL (0.6-1.3); POTASSIUM - SERUM 3.7 mmol/L (3.5-5.1); PROTEIN - SERUM 8.4 g/dL (6.4-8.2)
[2018-08-29 12:35] LABS: APPEARANCE HAZY (CLEAR); BILIRUBIN NEGATIVE (NEGATIVE); COLOR YELLOW (YELLOW); GLUCOSE 1000 mg/dL (NEGATIVE); KETONE LARGE mg/dL (NEGATIVE); NITRITE NEGATIVE (NEGATIVE); PROTEIN NEGATIVE (NEGATIVE)
[2018-08-29 12:46] LABS: UDS - AMPHET NEGATIVE QUAL (NEGATIVE); UDS - BARB NEGATIVE QUAL (NEGATIVE); UDS - BENZO NEGATIVE QUAL (NEGATIVE); UDS - COCAINE NEGATIVE QUAL (NEGATIVE); UDS - OPIATE NEGATIVE QUAL (NEGATIVE); UDS - PCP NEGATIVE QUAL (NEGATIVE); UDS - THC POSITIVE QUAL (NEGATIVE)
[2018-08-30] VITALS (7 sets, daily range): BP systolic 119–174; BP diastolic 79–91; Ht 167.6 cm; Wt 53.5 kg
[2018-08-30 06:53] LABS: BASOPHILS 0.3 % (0-2); EOSINOPHILS 0.5 % (0-7); HEMATOCRIT 38.9 % (36.0-48.0); HEMOGLOBIN 13.1 g/dL (12-16); IMMATURE GRANULOCYTES 0.3 % (0-5); LYMPHOCYTES 11.1 % (15-50); MCH 34.4 pg (26.0-34.0); MCHC 33.7 g/dL (31.0-37.0); MCV 102.1 fL (80.0-100.0); MEAN PLATELET VOLUME 9.9 fL (7.4-10.4); MONOCYTES 7.7 % (2-11); NEUTROPHILS 80.1 % (40-80); PLATELET COUNT 283 10x3/uL (130-400); RBC 3.81 10x6/uL (4.00-5.40); RDW 12.9 % (11.5-14.5)
[2018-08-30 07:18] LABS: WBC 15.1 10x3/uL (4.8-10.8)
[2018-08-30 07:40] LABS: ALBUMIN 3.6 g/dL (3.4-5.0); ALKALINE PHOSPHATASE 57 U/L (46-116); ALT (SGPT) 16 U/L (10-68); BILIRUBIN - TOTAL 0.55 mg/dL (0.2-1.3); CALCIUM 9.3 mg/dL (8.5-10.1); CARBON DIOXIDE 17.3 mmol/L (21.0-32.0); CHLORIDE - SERUM 98 mmol/L (98-107); MAGNESIUM - SERUM 1.7 mg/dL (1.8-2.4); PROTEIN - SERUM 7.8 g/dL (6.4-8.2); SODIUM 135 mmol/L (136-145)
[2018-08-30 07:42] LABS: CALC OSMOLALITY 268 mosm/kg (275-300); CREATININE - SERUM 0.5 mg/dL (0.6-1.3); GLUCOSE 125 mg/dL (74-106); POTASSIUM - SERUM 4.5 mmol/L (3.5-5.1); UREA NITROGEN 8 mg/dL (7-18); eGFR NON AFRICAN AMERICAN > 90 mL/min (90-120)
[2018-08-31] VITALS (7 sets, daily range): BP systolic 101–126; BP diastolic 52–78
[2018-08-31 11:19] LABS: HEMATOCRIT 31.4 % (36.0-48.0); MCH 33.3 pg (26.0-34.0); MCHC 33.1 g/dL (31.0-37.0); MCV 100.6 fL (80.0-100.0); MEAN PLATELET VOLUME 9.1 fL (7.4-10.4); PLATELET COUNT 239 10x3/uL (130-400); RBC 3.12 10x6/uL (4.00-5.40); RDW 12.6 % (11.5-14.5)
[2018-08-31 11:22] LABS: HEMOGLOBIN 10.4 g/dL (12-16); WBC 8.2 10x3/uL (4.8-10.8)
[2018-08-31 11:24] LABS: BASOPHILS 0.2 % (0-2); EOSINOPHILS 0.2 % (0-7); IMMATURE GRANULOCYTES 0.1 % (0-5); LYMPHOCYTES 32.9 % (15-50); MONOCYTES 9.7 % (2-11); NEUTROPHILS 56.9 % (40-80)
[2018-08-31 11:32] LABS: ALBUMIN 2.4 g/dL (3.4-5.0); ALKALINE PHOSPHATASE 37 U/L (46-116); ALT (SGPT) 13 U/L (10-68); BILIRUBIN - TOTAL 0.46 mg/dL (0.2-1.3); CALC OSMOLALITY 277 mosm/kg (275-300); CALCIUM 7.4 mg/dL (8.5-10.1); CARBON DIOXIDE 21.7 mmol/L (21.0-32.0); CHLORIDE - SERUM 108 mmol/L (98-107); CREATININE - SERUM 0.7 mg/dL (0.6-1.3); GLUCOSE 130 mg/dL (74-106); POTASSIUM - SERUM 3.1 mmol/L (3.5-5.1); PROTEIN - SERUM 5.7 g/dL (6.4-8.2); SODIUM 139 mmol/L (136-145); UREA NITROGEN 7 mg/dL (7-18); eGFR NON AFRICAN AMERICAN > 90 mL/min (90-120)
[2018-09-01] VITALS: BP 127/67
[2018-09-01 04:00] VITALS: BP 112/68
[2018-09-01 06:12] LABS: CALC OSMOLALITY 282 mosm/kg (275-300); CALCIUM 7.9 mg/dL (8.5-10.1); CARBON DIOXIDE 24.1 mmol/L (21.0-32.0); CHLORIDE - SERUM 111 mmol/L (98-107); CREATININE - SERUM 0.6 mg/dL (0.6-1.3); GLUCOSE 84 mg/dL (74-106); POTASSIUM - SERUM 3.9 mmol/L (3.5-5.1); SODIUM 144 mmol/L (136-145); UREA NITROGEN 4 mg/dL (7-18); eGFR NON AFRICAN AMERICAN > 90 mL/min (90-120)
[2018-09-01 06:37] LABS: BASOPHILS 0.2 % (0-2); HEMATOCRIT 30.8 % (36.0-48.0); HEMOGLOBIN 10.4 g/dL (12-16); IMMATURE GRANULOCYTES 0.2 % (0-5); LYMPHOCYTES 46.6 % (15-50); MCH 33.7 pg (26.0-34.0); MCHC 33.8 g/dL (31.0-37.0); MCV 99.7 fL (80.0-100.0); MEAN PLATELET VOLUME 9.3 fL (7.4-10.4); MONOCYTES 11.9 % (2-11); NEUTROPHILS 40.1 % (40-80); PLATELET COUNT 274 10x3/uL (130-400); RBC 3.09 10x6/uL (4.00-5.40); RDW 12.5 % (11.5-14.5); WBC 8.1 10x3/uL (4.8-10.8)
[2018-09-01 08:05] VITALS: BP 130/73
[2018-09-01 10:38] VITALS: BP 115/73
[2018-09-01] MEDS ORDERED: CARAFATE1 G PO (15:53)
[2018-09-01] MEDS ORDERED: LISINOPRIL10 MG PO (15:53)
[2018-09-01] MEDS ORDERED: OMEPRAZOLE20 M1 PO (15:55)
[2018-09-01] MEDS ORDERED: PEPCID AC20 MG PO (15:56)
== END 2018-09-01 18:21 | disposition home or self-care (01) | DRG 74 ==
LOC: D.ER 08:54 → D.M3 15:11 → OBSVTIME 15:11 → D.EDHOLD 15:11 → D.M3 16:21
PROVIDERS: Family Medicine; Internal Medicine Gastroenterology; Internal Medicine Nephrology
PROC: 0DB68ZX Excision of Stomach, Via Natural or Artificial Opening Endoscopic, Diagnostic (ICD-10-PCS; 2018-09-01)
PROC: 0DB58ZX Excision of Esophagus, Via Natural or Artificial Opening Endoscopic, Diagnostic (ICD-10-PCS; 2018-09-01)
PROC: 0DB98ZX Excision of Duodenum, Via Natural or Artificial Opening Endoscopic, Diagnostic (ICD-10-PCS; principal; 2018-09-01 13:46)
DX: E11.43 Type 2 diabetes mellitus with diabetic autonomic (poly)neuropathy (principal); N17.9 Acute kidney failure, unspecified; F17.213 Nicotine dependence, cigarettes, with withdrawal; K31.84 Gastroparesis; I10 Essential (primary) hypertension; F12.90 Cannabis use, unspecified, uncomplicated; F32.9 Major depressive disorder, single episode, unspecified; F25.9 Schizoaffective disorder, unspecified; E83.42 Hypomagnesemia; K52.9 Noninfective gastroenteritis and colitis, unspecified; K20.9 Esophagitis, unspecified; K29.00 Acute gastritis without bleeding; K29.80 Duodenitis without bleeding

== ENCOUNTER 2018-09-07 11:09 | Emergency (ER) | payer MEDICAID ==
[~2018-09-07] VITALS: Ht 167.6 cm; Wt 53.6 kg
[~2018-09-07 11:09] MED LIST changes: +LISINOPRIL10 MG PO; +OMEPRAZOLE20 M1 PO; +PEPCID AC20 MG PO; +[UNRECOGNIZED DRUG - REMARK]
[2018-09-07 11:14] VITALS: Ht 167.6 cm; Wt 53.6 kg
[2018-09-07 12:45] LABS: BASOPHILS 0.3 % (0-2); EOSINOPHILS 0.3 % (0-7); HEMATOCRIT 36.7 % (36.0-48.0); HEMOGLOBIN 12.3 g/dL (12-16); IMMATURE GRANULOCYTES 0.3 % (0-5); LYMPHOCYTES 28.4 % (15-50); MCH 34.5 pg (26.0-34.0); MCHC 33.5 g/dL (31.0-37.0); MCV 102.8 fL (80.0-100.0); MEAN PLATELET VOLUME 8.9 fL (7.4-10.4); MONOCYTES 7.2 % (2-11); NEUTROPHILS 63.5 % (40-80); RBC 3.57 10x6/uL (4.00-5.40); RDW 13.1 % (11.5-14.5)
[2018-09-07 12:48] LABS: PLATELET COUNT 444 10x3/uL (130-400)
[2018-09-07 12:54] LABS: ALBUMIN 3.4 g/dL (3.4-5.0); ALKALINE PHOSPHATASE 62 U/L (46-116); ALT (SGPT) 20 U/L (10-68); BILIRUBIN - TOTAL 0.36 mg/dL (0.2-1.3); CALC OSMOLALITY 275 mosm/kg (275-300); CALCIUM 8.9 mg/dL (8.5-10.1); CARBON DIOXIDE 26.4 mmol/L (21.0-32.0); CHLORIDE - SERUM 101 mmol/L (98-107); CREATININE - SERUM 0.6 mg/dL (0.6-1.3); GLUCOSE 76 mg/dL (74-106); POTASSIUM - SERUM 3.9 mmol/L (3.5-5.1); PROTEIN - SERUM 8.1 g/dL (6.4-8.2); SODIUM 139 mmol/L (136-145); UREA NITROGEN 9 mg/dL (7-18); eGFR NON AFRICAN AMERICAN > 90 mL/min (90-120)
[2018-09-07 13:02] LABS: UDS - AMPHET NEGATIVE QUAL (NEGATIVE); UDS - BARB NEGATIVE QUAL (NEGATIVE); UDS - BENZO NEGATIVE QUAL (NEGATIVE); UDS - COCAINE NEGATIVE QUAL (NEGATIVE); UDS - OPIATE NEGATIVE QUAL (NEGATIVE); UDS - PCP NEGATIVE QUAL (NEGATIVE); UDS - THC POSITIVE QUAL (NEGATIVE)
[2018-09-07 13:25] LABS: APPEARANCE CLEAR (CLEAR); BILIRUBIN NEGATIVE (NEGATIVE); COLOR STRAW (YELLOW); GLUCOSE NEGATIVE (NEGATIVE); KETONE SMALL mg/dL (NEGATIVE); NITRITE NEGATIVE (NEGATIVE); PROTEIN NEGATIVE (NEGATIVE); UROBILINOGEN NORMAL (NORMAL)
[2018-09-07 13:26] LABS: EPITHELIAL CELLS 0-5 /hpf (0-5); RED CELLS - URINE NONE SEEN /hpf (0-5); WHITE CELLS - URINE NSEEN /hpf (0-5)
[2018-09-07 17:40] VITALS: BP 145/076
== END 2018-09-07 17:55 ==
LOC: D.ER 11:09
PROVIDERS: Family Medicine
DX: R45.851 Suicidal ideations (principal); R45.850 Homicidal ideations; F17.200 Nicotine dependence, unspecified, uncomplicated

== ENCOUNTER 2018-10-23 17:04 | Observation (INO) | payer MEDICAID ==
[~2018-10-23] VITALS: Ht 167.6 cm; Wt 59.9 kg
[2018-10-23 17:59] LABS: BASOPHILS 0.2 % (0-2); EOSINOPHILS 0.1 % (0-7); HEMATOCRIT 37.5 % (36.0-48.0); HEMOGLOBIN 12.7 g/dL (12-16); IMMATURE GRANULOCYTES 0.3 % (0-5); LYMPHOCYTES 19.6 % (15-50); MCH 33.5 pg (26.0-34.0); MCHC 33.9 g/dL (31.0-37.0); MCV 98.9 fL (80.0-100.0); MEAN PLATELET VOLUME 9.2 fL (7.4-10.4); MONOCYTES 3.3 % (2-11); NEUTROPHILS 76.5 % (40-80); RBC 3.79 10x6/uL (4.00-5.40); RDW 11.9 % (11.5-14.5)
[2018-10-23 18:00] LABS: APPEARANCE CLEAR (CLEAR); BILIRUBIN NEGATIVE (NEGATIVE); COLOR STRAW (YELLOW); GLUCOSE NEGATIVE (NEGATIVE); KETONE NEGATIVE (NEGATIVE); NITRITE NEGATIVE (NEGATIVE); PROTEIN NEGATIVE (NEGATIVE); UROBILINOGEN NORMAL (NORMAL)
[2018-10-23 18:01] LABS: PLATELET COUNT 291 10x3/uL (130-400)
[2018-10-23 18:07] LABS: APTT 33.9 SECONDS (22.8-39.4); INR 1.1 (0.85-1.17); PROTIME 13.7 SECONDS (11.6-15.0)
[2018-10-23 18:17] LABS: ALBUMIN 3.9 g/dL (3.4-5.0); ALKALINE PHOSPHATASE 62 U/L (46-116); ALT (SGPT) 18 U/L (10-68); BILIRUBIN - TOTAL 0.35 mg/dL (0.2-1.3); CALC OSMOLALITY 265 mosm/kg (275-300); CALCIUM 9.1 mg/dL (8.5-10.1); CARBON DIOXIDE 26.2 mmol/L (21.0-32.0); CHLORIDE - SERUM 97 mmol/L (98-107); CREATININE - SERUM 0.6 mg/dL (0.6-1.3); POTASSIUM - SERUM 3.7 mmol/L (3.5-5.1); PROTEIN - SERUM 8.1 g/dL (6.4-8.2); SODIUM 132 mmol/L (136-145); UREA NITROGEN 12 mg/dL (7-18); eGFR NON AFRICAN AMERICAN > 90 mL/min (90-120)
[2018-10-23 18:22] LABS: GLUCOSE 122 mg/dL (74-106)
[2018-10-23 18:26] VITALS: BP 166/98
[2018-10-23 18:32] LABS: AMYLASE - SERUM 100 U/L (25-115); CKMB 0.1 U/L (0.0-3.6); CREATINE KINASE 73 UL (21-215); LIPASE 123 U/L (73-393)
[2018-10-23 18:36] LABS: TROPONIN-I < 0.017 ng/mL (0.000-0.060)
[2018-10-23 19:00] VITALS: BP 173/102
[2018-10-23 20:00] VITALS: BP 158/93
[2018-10-23 21:00] VITALS: BP 160/85
[2018-10-23 22:33] LABS: HCG SERUM NEGATIVE (NEGATIVE)
--- NOTE | 2018-10-23 22:55 | NUR ---
PT ARRIVED ON UNIT VIA WHEELCHAIR ESCORTED BY ER STAFF. ORIENTED TO ROOM AND CALL LIGHT. IV FLUIDS INFUSING AT 125 ML / HR. WILL MONITOR FOR NEEDS.
--- NOTE | 2018-10-23 23:04 | NUR ---
GAVE MORPHINE 4 MG AND ZOFRAN 4 MG IVP FOR C/O ABDOMINAL PAIN AND NAUSEA. WILL MONITOR FOR EFFECTIVENESS.
[2018-10-23] MEDS ORDERED: TEMAZEPAM30 MG PO (23:11)
[2018-10-23] MEDS ORDERED: CYCLOBENZAPRINE10 MG PO (23:11)
[2018-10-23] MEDS ORDERED: CELEXA20 MG PO (23:12)
[2018-10-23] MEDS ORDERED: TRAZODONE HCL300 MG PO (23:13)
[2018-10-23 23:44] VITALS: BP 170/98; BMI 21.3
--- NOTE | 2018-10-24 01:06 | NUR ---
PT RESTING IN SUPINE POSITION WITH EYES CLOSED. WILL CONTINUE TO MONITOR FOR NEEDS. CALL LIGHT WITHIN REACH.
[2018-10-24 04:00] VITALS: BP 117/77
[2018-10-24 08:53] VITALS: BP 116/73
[2018-10-24 13:25] VITALS: BP 125/78
[2018-10-24 13:34] VITALS: Ht 167.6 cm; Wt 59.9 kg
[2018-10-24 17:26] VITALS: BP 114/74
[2018-10-24 20:00] VITALS: BP 123/76
--- NOTE | 2018-10-24 20:40 | NUR ---
PT RESTING IN BED. ALERT AND ORIENTED. NO SIGNS OF DISTRESS. BREATHING EVEN AND UNLABORED. PT STATES ABD PAIN WILL GIVE PAIN MEDICATION PER MAR. SKIN CLEAN DRY AND ITNACT. NO SIGNS OF INFECTION. IV SITE LT HAND DRESSING CLEAN DRY AND INTACT. NO SIGNS OF INFECTION. BOWEL SOUNDS ACTIVE. NO LOWER LEG SWELLING PRESENT. WILL CONTINUE PLAN OF CARE. CALL LIGHT IN REACH.
[2018-10-25 04:00] VITALS: BP 154/98
--- NOTE | 2018-10-25 07:35 | NUR ---
PT AAOX4 RESP EVEN AND NONLABORED, NO SIGNS OF DISTRESS NOTED, CL IN REACH WILL CONTINUE TTO MONITOR
[2018-10-25 08:28] VITALS: BP 130/76
[2018-10-25 10:11] LABS: ALBUMIN 3.2 g/dL (3.4-5.0); ALKALINE PHOSPHATASE 49 U/L (46-116); ALT (SGPT) 19 U/L (10-68); BILIRUBIN - TOTAL 0.48 mg/dL (0.2-1.3); CALC OSMOLALITY 275 mosm/kg (275-300); CALCIUM 8.1 mg/dL (8.5-10.1); CARBON DIOXIDE 26.5 mmol/L (21.0-32.0); CHLORIDE - SERUM 102 mmol/L (98-107); CREATININE - SERUM 0.7 mg/dL (0.6-1.3); GLUCOSE 98 mg/dL (74-106); LIPASE 264 U/L (73-393); POTASSIUM - SERUM 3.6 mmol/L (3.5-5.1); PROTEIN - SERUM 6.7 g/dL (6.4-8.2); SODIUM 139 mmol/L (136-145); eGFR NON AFRICAN AMERICAN > 90 mL/min (90-120)
[2018-10-25 10:12] LABS: AMYLASE - SERUM 140 U/L (25-115); UREA NITROGEN 6 mg/dL (7-18)
[2018-10-25 10:38] LABS: HEMATOCRIT 32.8 % (36.0-48.0); HEMOGLOBIN 10.8 g/dL (12-16); MCH 33.1 pg (26.0-34.0); MCHC 32.9 g/dL (31.0-37.0); MCV 100.6 fL (80.0-100.0); MEAN PLATELET VOLUME 9.2 fL (7.4-10.4); PLATELET COUNT 269 10x3/uL (130-400); RBC 3.26 10x6/uL (4.00-5.40); WBC 7.9 10x3/uL (4.8-10.8)
[2018-10-25 11:41] LABS: LYMPHOCYTES 52 % (15-50); MONOCYTES 6 % (2-11); NEUTROPHILS 42 % (40-80); PLATELET ESTIMATE NORMAL
[2018-10-25 11:53] VITALS: BP 135/87
--- NOTE | 2018-10-25 18:35 | NUR ---
CONTINUE EXPOSURE MACHINE OPERATOR PLAN OF CARE.
--- NOTE | 2018-10-25 20:20 | NUR ---
PT RESTING IN BED. ALERT AND ORIENTED. PT STATES NO PROBLEMS AT THIS TIME. NO SIGNS OF DISTRESS. BREATHING EVEN AND UNLABORED. IV SITE LT HAND DRESSING CLEAN DRY AND ITNACT. NO SIGNS OF INFECTION. SKIN CLEAN DRY AND INTACT. BOWEL SOUNDS ACTIVE. NO LOWER LEG SWELLING PRESENT. WILL CONTINUE PLAN OF CARE. CALL LIGHT IN REACH.
[2018-10-25 20:48] VITALS: BP 139/96
[2018-10-26 01:08] VITALS: BP 152/97
--- NOTE | 2018-10-26 01:13 | NUR ---
EYES CLOSED RESPIRATIONS WITH EASE AND UNLABORED. SR UP X2 CALL LIGHT WITHIN REACH.
--- NOTE | 2018-10-26 01:17 | NUR ---
EYES CLOSED RESPIRATIONS WITH EASE AND UNLABORED. SR UP X2 CALL LIGHT WITHIN REACH.
[2018-10-26 08:30] VITALS: BP 171/77
--- NOTE | 2018-10-26 09:55 | MORECARE ---
CASE MANAGEMENT DISCHARGE SUMMARY PATIENT: MAGALI CAMPOS UNIT: [id number] ADM DATE: 10/23/18 AGE: 42 : 75 SEX: F ROOM/BED: D.2218 AUTHOR: FRENCH MIRZA PHYSICIAN: REFERRING PHYSICIAN: AIDA WOODS MD DATE OF SERVICE: 10/26/18 Discharge Plan Patient Name: MAGALI CAMPOS [facility] [facility] 1975 Planned Disposition: Anticipated Discharge Date: Discharge Date: Expected LOS: Initial Reviewer: [email or web address] Initial Review Date: 10/23/2018 Generated: 10/26/18 10:55 am Comments DCP- Discharge Planning Updated by [email or web address]: Yoselin Phan on 10/26/18 8:[address] PATIENT WILL NEED TRANSPORTATION HOME VIA [facility]. TO [address] I CALLED THE [facility] SERVICE AND SHE QUOTED ME 17.00. IT WILL BE CHARGED TO CM ACCOUNT. Patient Name: MAGALI CAMPOS Page 38987 at 0955 All edits/amendments must be made on the electronic document DICTATION DATE: 10/26/18954 HEAVY EQUIPMENT ENGINE MECHANIC: DAFNE 10/26/18954 RPT#: [id number] DC DATE: STATUS: ADM IN [facility] [address] [place] [address] END OF REPORT
--- NOTE | 2018-10-26 13:14 | NUR ---
PT DC INSTRUCTIONS GIVEN AND UNDERSTOOD. IV DC'ED WITH TIP INTACT.
--- NOTE | 2018-10-31 10:35 | MORECARE ---
CASE MANAGEMENT DISCHARGE SUMMARY PATIENT: MAGALI CAMPOS UNIT: [id number] ADM DATE: 10/23/18 AGE: 42 : 75 SEX: F ROOM/BED: D.2218 AUTHOR: FRENCH MIRZA PHYSICIAN: REFERRING PHYSICIAN: AIDA WOODS MD DATE OF SERVICE: 10/31/18 Discharge Plan Patient Name: MAGALI CAMPOS Facility: [facility]:[place] : 1975 Planned Disposition: Anticipated Discharge Date: Discharge Date: 10/26/2018 Expected LOS: Initial Reviewer: [email or web address] Initial Review Date: 10/23/2018 Generated: 10/31/18 11:35 am Comments DCP- Discharge Planning Updated by [email or web address]: Yoselin Phan on 10/26/18 8:[address] PATIENT WILL NEED TRANSPORTATION HOME VIA [facility]. TO [address] I CALLED THE [facility] SERVICE AND SHE QUOTED ME 17.00. IT WILL BE CHARGED TO CM ACCOUNT. Last DP export: 10/26/18 8:55 a Patient Name: MAGALI CAMPOS Page [phone] at 1035 All edits/amendments must be made on the electronic document DICTATION DATE: 10/31/18 1035 SMOKE CONTROL SUPERVISOR: DAFNE 10/31/18 1035 RPT#: [id number] DC DATE:10/26/18 STATUS: DIS IN [facility] [address] [place] [address] END OF REPORT
== END 2018-10-26 13:32 | disposition home or self-care (01) ==
LOC: D.ER 17:04 → D.MS 21:57 → OBSVTIME 21:57 → D.MS 21:57
PROVIDERS: Emergency Medicine; Family Medicine; ADMIT Surgery
DX: K31.84 Gastroparesis (principal); F12.90 Cannabis use, unspecified, uncomplicated; F20.9 Schizophrenia, unspecified; F17.200 Nicotine dependence, unspecified, uncomplicated

== ENCOUNTER 2019-03-21 17:56 | Emergency (ER) | payer MEDICAID ==
[~2019-03-21] VITALS: Ht 167.6 cm; Wt 67.0 kg
[~2019-03-21 17:56] MED LIST changes: +CELEXA20 MG PO; +CYCLOBENZAPRINE10 MG PO; +TEMAZEPAM30 MG PO; +TRAZODONE HCL300 MG PO
[2019-03-21 18:02] VITALS: Ht 167.6 cm; Wt 67.0 kg
[2019-03-21] MEDS ORDERED: WELLBUTRIN XL150 M1 PO (18:12)
[2019-03-21] MEDS ORDERED: HALDOL5 MG PO (18:13)
[2019-03-21] MEDS ORDERED: ZETIA10 MG PO (18:13)
[2019-03-21] MEDS ORDERED: NEURONTIN 300300 MG PO (18:13)
[2019-03-21] MEDS ORDERED: DICLOFENAC SODI50 MG PO (18:13)
[2019-03-21] MEDS ORDERED: VISTARIL25 MG PO (18:14)
[2019-03-21] MEDS ORDERED: PRAVACHOL40 MG PO (18:15)
[2019-03-21] MEDS ORDERED: ZOFRAN4 MG PO ×2 (18:15→23:55)
[2019-03-21] MEDS ORDERED: ZYPREXA10 MG PO (18:15)
--- NOTE | 2019-03-21 19:02 | NUR ---
DR. SCHMITZ NOTIFIED AND REVIEWED PT'S BEHAVIOR AND ASSESSMENT RESULTS. PT IS A LOW RISK PER DR. SCHMITZ. DR. SCHMITZ STATED TO GIVE RESOURCES TO PT AT TIME OF DISCHARGE. NO FURTHER ORDERS AT THIS TIME. RESOURCES REVIEWED WITH PT AND SHE VERBALIZED UNDERSTANDING.
[2019-03-21 19:12] LABS: HEMATOCRIT 36.4 % (36.0-48.0); MCH 30.6 pg (26.0-34.0); MCV 92.9 fL (80.0-100.0); MEAN PLATELET VOLUME 8.9 fL (7.4-10.4); PLATELET COUNT 313 10x3/uL (130-400); RBC 3.92 10x6/uL (4.00-5.40); RDW 13.6 % (11.5-14.5); WBC 6.7 10x3/uL (4.8-10.8)
[2019-03-21 19:31] LABS: EOSINOPHILS 3 % (0-7); LYMPHOCYTES 62 % (15-50); MONOCYTES 4 % (2-11); NEUTROPHILS 31 % (40-80); PLATELET ESTIMATE NORMAL
[2019-03-21 19:53] LABS: ALKALINE PHOSPHATASE 60 U/L (46-116); ALT (SGPT) 21 U/L (10-68); BILIRUBIN - TOTAL 0.31 mg/dL (0.2-1.3); CALC OSMOLALITY 274 mosm/kg (275-300); CALCIUM 9.3 mg/dL (8.5-10.1); CARBON DIOXIDE 26.8 mmol/L (21.0-32.0); CHLORIDE - SERUM 102 mmol/L (98-107); CREATININE - SERUM 0.8 mg/dL (0.6-1.3); GLUCOSE 86 mg/dL (74-106); POTASSIUM - SERUM 3.7 mmol/L (3.5-5.1); PROTEIN - SERUM 7.8 g/dL (6.4-8.2); SODIUM 139 mmol/L (136-145); UREA NITROGEN 8 mg/dL (7-18); eGFR NON AFRICAN AMERICAN 83 mL/min (90-120)
[2019-03-21 22:31] LABS: CKMB 0.1 U/L (0.0-3.6); CREATINE KINASE 108 UL (21-215)
[2019-03-21 22:33] LABS: TROPONIN-I < 0.017 ng/mL (0.000-0.060)
[2019-03-21 23:21] LABS: CKMB 0.2 U/L (0.0-3.6); CREATINE KINASE 96 UL (21-215); TROPONIN-I < 0.017 ng/mL (0.000-0.060)
[2019-03-22 00:24] VITALS: BP 125/74
== END 2019-03-22 00:28 | disposition home or self-care (01) ==
LOC: D.ER 17:56
PROVIDERS: Family Medicine
DX: K64.9 Unspecified hemorrhoids (principal); R10.9 Unspecified abdominal pain; Z76.5 Malingerer [conscious simulation]; R11.0 Nausea; F17.210 Nicotine dependence, cigarettes, uncomplicated

== ENCOUNTER 2020-03-12 22:24 | Observation (INO) | payer MEDICAID ==
[~2020-03-12] VITALS: Ht 167.6 cm; Wt 68.6 kg
--- NOTE | ~2020-03-12 | OP ---
PATIENT NAME: MAGALI CAMPOS MEDICAL RECORD: [id number] :[birth year] LOCATION:D.M2 D.2114 ADMISSION DATE:03/12/20 SURGEON: STELLA ALBERTO MD DATE OF OPERATION: 03/13/2020 PROCEDURE: Left heart catheterization, selective coronary angiography, right femoral artery approach. CATHETERS: A 5-[place] sheath, 5/4 left and right Sharan, 5/4 pig. The procedure was well tolerated. The patient returned to the andino, sheath removed. ExoSeal device placed. FINDINGS: Left ventriculography in 30-degree GARNICA view: Normal wall function, normal systolic function. CORONARY ANATOMY: LEFT MAIN: Free of disease. LAD: Free of disease in the diagonal system. CIRCUMFLEX: Free of disease in the marginal system. RIGHT CORONARY ARTERY: Dominant artery, gives rise to PDA, free of disease. IMPRESSION: Left ventricular systolic function. Normal coronary anatomy. TRANSINT:[id number] Voice Confirmation ID: [id number] DOCUMENT ID: [id number] STELLA ALBERTO MD CC: [id number] DICTATION DATE: 03/13/20 1221 FIRER BOILER: 03/13/202202 DIS IN 03/13/20 [facility] [address] [place] [id number]
--- NOTE | ~2020-03-12 | CN ---
PATIENT NAME:MAGALI CAMPOS MEDICAL RECORD: [id number] : 75 LOCATION:D. D.2114 ADMIT DATE: 03/12/20 ACCOUNT: [id number] CONSULTING PHYSICIAN: STELLA ALBERTO MD REFERRING PHYSICIAN: GISSELL FENTON MD DATE OF CONSULTATION: 03/13/2020 HISTORY OF PRESENT ILLNESS: A 44-year-old female with strong family history of coronary artery disease, history of dyslipidemia, began having chest pain over the last 4-5 days, exertional initially, had rest symptomology yesterday, pressure and tightness radiating to the throat, some pleuritic component, occasionally worse with inspiration. No cough, fever, chills. Cholesterol has been normal. Smoked marijuana on occasion. We are asked to see her concerning her cardiovascular status. PAST MEDICAL HISTORY: Includes; 1. History of dyslipidemia. 2. Borderline hypertension. ALLERGIES: IBUPROFEN. MEDICATIONS: Include Celexa 20 mg p.o. every day, doxepin 25 every day, gabapentin 300 t.i.d., Restoril 15 at bedtime, Vistaril 25 t.i.d. p.r.n., trazodone 300 at bedtime, vitamin D. SOCIAL HISTORY: Smokes occasional marijuana. Does try to exercise walking her dog. No illicit drugs. REVIEW OF SYSTEMS: The patient reports easy bruising but reports no swollen glands. The patient reports no fever, no night sweats, no significant weight gain, no significant weight loss. No significant exercise tolerance. The patient reports no dry eyes, no irritation, no vision change. Patient reports no difficulty hearing and no ear pain. Patient reports no frequent nose bleeds or nose and sinus problems. Patient reports on arm pain on exertion. No shortness of breath while lying down. No history of heart murmur. Patient reports no cough, no wheezing or coughing up blood. Patient reports no abdominal pain, no vomiting. Normal appetite. No diarrhea and not vomiting blood. No nausea and no constipation. Patient reports no incontinence. No difficulty urinating. No hematuria. No increased frequency. Patient reports no muscle aches. No weakness, no arthralgias, no back pain. No swelling of the extremities. Patient reports no abnormal mole, no jaundice, no rashes. Reports no loss of consciousness. No weakness and no numbness. No seizures, dizziness, or headaches. The patient reports no depression, no sleep disturbance, feeling safe in a relationship and no alcohol abuse. Patient reports on fatigue. Reports no runny nose or sinus pressure. No itching, no hives, and no frequent sneezing. PHYSICAL EXAMINATION: GENERAL: Pleasant female, in no acute distress, appears stated age. VITAL SIGNS: Blood pressure 125/77, pulse 86 and regular. HEENT: Normocephalic, atraumatic. NECK: No JVD or bruit. HEART: Regular, II/ systolic ejection murmur. LUNGS: Good air excursion. ABDOMEN: Soft, nontender. CONSULT REPORT [id number] MAGALI CAMPOS EXTREMITIES: Pulse 2+. No edema. DIAGNOSTIC DATA: EKG shows nonspecific ST changes inferolaterally. IMPRESSION: Acute coronary syndrome with EKG changes. PLAN: For angiography, intervention based on above. TRANSINT:[id number] Voice Confirmation ID: [id number] DOCUMENT ID: [id number] STELLA ALBERTO MD CC: [id number] DICTATION DATE: 03/13/20835 DOLLY DRIVER: 03/13/20 1145 ADM IN [facility] [address] [place] [address]
--- NOTE | ~2020-03-12 | HEMODYNAMI ---
PATIENT:MAGALI CAMPOS MEDICAL RECORD: [id number] : 75 [id number] ADMISSION DATE: 03/12/20 Generatedon:03/13/202012:16 Patient name: MAGALI CAMPOS Patient #: [id number] SSN: : 1975 Date of study: 03/13/2020 Page: Of Hemodynamic Procedure Report Patient Data Patient Demographics Procedure consent was obtained First Name: MAGALI Gender: Female Last Name: BETH : 1975 [facility] Initial: J Age: 44 year(s) Patient #: [id number] Race: Black Additional ID: [id number] Contact details [address]: [address] [place] [address] State: [place] City: [place] Zip code: [address] Past Medical History Allergies Allergen Reaction Date Comments Reported Other allergy 03/13/2020 ibuprofen Admission Admission Data Admission Date: 03/12/2020 Admission Time: 23:33 Admit Source: Other Room #: D.2114 Lab Results Lab Result Date: 03/13/2020 Lab Result Time: 0:00 Biochemistry Name Units Result Min Max BUN mg/dl 8.4 --(*---)-- 7 18 Creatinine mg/dl 0.9 --(-*--)-- 0.6 1.3 eGFR ml/min 72 *-(----)-- 90 120 NONAFRICAN CBC Name Units Result Min Max Hemoglobin g/dl 11.9 *-(----)-- 13.5 17.5 Procedure Procedure Types Cath Procedure Diagnostic Procedure LHC LHC w/Coronaries Procedure Description Procedure Date Procedure Date: 03/13/2020 Procedure Start Time: 12:03 Procedure End Time: 12:13 Procedure Staff Name Function Jose L Lindquist MD Performing Physician Reta Goetz RT Monitor Pau Braswell RT Scrub Shaunna Floyd RN Nurse Procedure Data Cath Procedure Fluoroscopy Diagnostic fluoroscopy Total fluoroscopy Time: 1.1 time: 1.1 min min Diagnostic fluoroscopy Total fluoroscopy dose: 294 dose: 294 mGy mGy Contrast Material Contrast Material Type Amount (ml) Isovue 370 47 Entry Location Entry Primary Successful Side Size Upsize Upsize Entry Closure Succes sful Closure Location (Fr) 1 (Fr) 2 (Fr) Remarks Device Remarks Femoral Right 5 Fr Exoseal artery Estimated blood loss: 5 ml Diagnostic catheters Device Type Used For End Catheter Placement MULTIPACK JL 4.0 5Fr Procedure catheter MULTIPACK 3DRC 5Fr Procedure catheter MULTIPACK Pigtail 5 Fr Procedure catheter Procedure Complications No complications Procedure Medications Medication Administration Route Dosage Oxygen etCO2 Nasal cannula 2 l/min Lidocaine 2% added to field 20 Heparin Flush Bag added to field 2 bags (1000units/500ml NS) 0.9% NaCl I.V. 100 ml/hr Versed I.V. 1 mg Fentanyl I.V. 50 mcg Versed I.V. 1 mg Fentanyl I.V. 50 mcg Solumedrol I.V. 125 mg Hemodynamics Rest HGB: 11.9 (g/dl) Heart Rate: 86 (bpm) Pressure Samples Time Site Value (mmHg) Purpose Heart Use Rate(bpm) 12:08 LV 65/-6,19 Snapshot 108 12:09 AO 113/74(96) Pullback 89 12:09 LV 102/18,21 Pullback 89 Gradients Valve Time Site 1 Site 2 Mean SEP/DFP Peak To Heart Use (mmHg) (sec/min) Peak Rate (mmHg) (bpm) Aortic 12:09 LV AO 0 89 102/18,21 113/74(96) Calculations Valve P-P Mean Valve Index Valve Source Name Gradient Area Flow (cm2) Aortic 0 0 Snapshots Pre Cath Intra NCS Post Cath Vital Signs Time Heart Resp SPO2 etCO2 NIBP (mmHg) Rhythm Pain Sedation Rate (ipm) (%) (mmHg) Status Level (bpm) 11:50:07 85 19 100 43.7 145/79(125) NSR 0 (11) 10(A) , No pain 11:54:17 89 13 93 41.4 127/80(102) NSR 0 (11) 10(A) , No pain 11:58:27 87 14 99 29.3 121/74(90) NSR 0 (11) 10(A) , No pain 12:02:35 83 14 99 42.1 111/72(100) NSR 0 (11) 10(A) , No pain 12:06:40 85 13 99 46.7 110/67(84) NSR 0 (11) 9(A) , No pain 12:10:44 83 15 99 36.9 117/68(87) NSR 0 (11) 9(A) , No pain 12:15:37 83 14 99 47.4 122/75(92) NSR 0 (11) 10(A) , No pain Medications Time Medication Route Dose Verified Delivered Reason Notes Eff ectiveness by by 11:55:12 Oxygen etCO2 2 Jose L Maza used for Nasal l/min St Mundo Floyd RN procedure cannula 11:55:19 Lidocaine 2% added 20ml Jose L Jose L for local to vial [facility] anesthetic field MD HOLLIDAY 11:55:24 Heparin Flush added 2 Jose L Jose L used for Bag to bags [facility] procedure (1000units/500ml field MD HOLLIDAY NS) 11:55:34 0.9% NaCl I.V. 100 Jose L Maza Per ml/hr St Mundo Floyd RN physician 11:59:32 Versed I.V. 1 mg Jose L Maza for St Mundo Floyd RN sedation 11:59:37 Fentanyl I.V. 50 Jose L Maza for mcg St Mundo Floyd RN sedation 12:06:33 Versed I.V. 1 mg Jose L Maza for LexaMundo Floyd RN sedation 12:06:37 Fentanyl I.V. 50 Jose L Patelie for mcg St Mundo Floyd RN sedation 12:12:49 Solumedrol I.V. 125 Jose L Maza Per mg St Mundo Floyd RN physician Procedure Log Time Note 11:27:48 Diagnostic Cath Status : Urgent 11:28:42 Lab Result : eGFR NONAFRICAN 72 ml/min 11:28:42 Lab Result : Creatinine 0.9 mg/dl 11:28:42 Lab Result : BUN 8.4 mg/dl 11:28:42 Lab Result : Hemoglobin 11.9 g/dl 11:28:48 Procedure Status Urgent Heart Cath (IP). 11:28:53 Shaunna Floyd RN sent for patient. Start room use. 11:28:54 Time tracking: Regular hours (M-F 7:00 - 5:00) 11:28:59 Plan of Care:Hemodynamics will remain stable., Cardiac rhythm will remain stable., Comfort level will be maintained., Respiratory function will remain adequate., Patient/ family verbilizes understanding of procedure., Procedure tolerated without complication., Recovers from procedure without complications.. 11:42:29 Patient received from Med II to CCL 2 Alert and oriented. Tansferred to table in Supine position. 11:42:32 Signed procedure consent form obtained from patient. 11:42:33 Warm blankets applied, and summer hugger turned on for patient comfort. 11:42:33 Correct patient and procedure confirmed by team. 11:42:34 ECG and BP/O2 sat monitors applied to patient. 11:44:28 H&P Date Dictated: 03/12/2020 Within 30 days and on chart.. 11:44:29 Pre-procedure instructions explained to patient. 11:44:29 Pre-op teaching completed and patient verbalized understanding. 11:44:33 Family unavailable. 11:44:35 Patient NPO since Midnight. 11:44:57 Patient allergic to Other allergyibuprofen 11:45:13 Patient pain scale 5/10 chest more when breathing. 11:45:32 Lab results completed and on chart. 11:45:36 Stress Test: no; N/A ? 11:45:42 Right groin area was prepped with chlora-prep and draped in sterile fashion 11:45:43 Alarms reviewed by R. N. 11:45:43 Sharps counted by scrub and verified by R.N. 11:45:52 Is the patient allergic to Iodine/contrast media? No. 11:45:54 Was the patient premedicated? N/A 11:45:56 Is patient on blood thinner?No 11:45:59 Patient diabetic? No. 11:46:01 If diabetic: On Metformin? N/A 11:47:55 Patient not . Patient has had hysterectomy. 11:47:57 ----Pre-sedation anethsthesia assessment.---- 11:48:02 Previous problem with sedation/anesthesia? No ? 11:48:03 Snore? Yes 11:48:07 Sleep apnea? No 11:48:08 Deviated septum? No 11:48:09 Opens mouth fully? Yes 11:48:12 Sticks out tongue? Yes 11:48:14 Airway obstruction? No ? 11:48:17 Dentures? No ? 11:48:50 IV patent on arrival in left antecubital with 0.9% NaCl at [facility]. 11:49:04 Vital chart was started 11:49:05 Full Disclosure recording started 11:49:08 Baseline sample Acquired. 11:49:13 Rhythm: sinus rhythm 11:49:39 Admit Source: Other 11:49:56 Use device set Femoral Dx 11:49:57 ACIST Syringe (19136) opened to sterile field. 11:49:58 Bag Decanter (2002S) opened to sterile field. 11:49:58 Medline Cath Pack ([id number]) opened to sterile field. 11:49:59 ACIST Hand Control (70459) opened to sterile field. 11:50:00 ACIST Manifold (38817) opened to sterile field. 11:50:01 DIAGNOSTIC Multipack 5Fr catheter set ([id number]) opened to sterile field. 11:50:02 SHEATH 5FR Redstone (OJA185) opened to sterile field. 11:50:02 EMERALD Guide Wire (539-576) opened to sterile field. 11:51:59 --------ALL STOP TIME OUT------ 11:52:00 Final Timeout: patient, procedure, and site verified with staff and physician. All members of the team are in agreement. 11:52:02 Right groin site verified by team. 11:52:05 Fire Safety Assessment: A--An alcohol-based skin anteseptic being used preoperatively., C--Open oxygen or nitrous oxide is being used., D--An ESU, laser, or fiber-optic light is being used. 11:52:08 Physical assessment completed. ASA score P 2 - A patient with mild systemic disease as per Jose L Lindquist MD. 11:52:12 2) 60-89 Mildly reduced kidney function, and other findings (as for stage 1) point to kidney disease. 11:52:14 Maximum allowable contrast dose (3.7 X eGFR X 0.75)200 ml. 11:52:18 Sedation plan: IV Moderate Sedation Medication:Versed, Fentanyl 11:55:12 Oxygen 2 l/min etCO2 Nasal cannula was administered by Shaunna Floyd RN; used for procedure; Verbal order read back and verified. 11:55:19 Lidocaine 2% 20ml vial added to field was administered by Jose L Lindquist MD; for local anesthetic; Verbal order read back and verified. 11:55:24 Heparin Flush Bag (1000units/500ml NS) 2 bags added to field was administered by Jose L Lindquist MD; used for procedure; Verbal order read back and verified. 11:55:34 0.9% NaCl 100 ml/hr I.V. was administered by Shaunna Floyd RN; Per physician; Verbal order read back and verified. 11:59:32 Versed 1 mg I.V. was administered by Shaunna Floyd RN; for sedation; Verbal order read back and verified. 11:59:37 Fentanyl 50 mcg I.V. was administered by Shaunna Floyd RN; for sedation; Verbal order read back and verified. 12:02:58 Procedure started. 12:03:03 Local anesthetic to right femoral artery with Lidocaine 2% by Jose L Lindquist MD.INITIAL ACCESS ONLY 12:04:11 A 5 Fr sheath was inserted into the Right Femoral artery 12:04:36 A MULTIPACK JL 4.0 5Fr catheter was advanced over the wire and used for Procedure. 12:05:18 LCA angiography performed. 12:05:22 Injector settings: Ml/sec: 3, Volume: 6, 12:06:20 Catheter removed. 12:06:33 Versed 1 mg I.V. was administered by Shaunna Floyd RN; for sedation; Verbal order read back and verified. 12:06:37 Fentanyl 50 mcg I.V. was administered by Shaunna Floyd RN; for sedation; Verbal order read back and verified. 12:06:38 A MULTIPACK 3DRC 5Fr catheter was advanced over the wire and used for Procedure. 12:07:07 RCA angiography performed. 12:07:10 Injector settings: Ml/sec: 3, Volume: 6, 12:07:32 ACCDominant side:Left 12:07:34 Catheter removed. 12:07:56 A MULTIPACK Pigtail 5 Fr catheter was advanced over the wire and used for Procedure. 12:08:08 LV gram done using GARNICA 12:08:45 Injector settings: Ml/sec: 5, Volume: 15, 12:08:57 LV hemodynamics recorded. 12:09:08 EF : 55 % 12:09:14 Catheter removed. 12:09:18 EXOSEAL 5Fr (EX500) opened to sterile field. 12:09:33 Sheath removed intact; hemostasis achieved with Exoseal to the Right Femoral artery. 12:09:37 Fluoroscopy time 01.10 minutes. 12:09:42 Fluoroscopy dose: 294 mGy 12:09:42 Flurop Dose total: 294 12:09:47 Dose Area Product 69991 mGy/cm. 12:09:53 Contrast amount:Isovue 370 47ml. 12:09:55 Maximum allowable dose exceeded? No. 12:09:56 Procedure ended.(Physican Out) 12:10:05 Post-op/insertion site Right Femoral artery dressed using a 4 x 4 and Tegaderm. 12:10:09 Post right femoral artery:stable, soft, clean and dry 12:10:12 Sharps counted by scrub and verified by R.N. 12:10:14 Post Procedure Pulses reassessed and unchanged 12:10:17 Post procedure: right dorsailis pedis pulse 2+ Normal; easily identifiable; not easily obliterated. 12:10:20 Post-procedure physical assessment completed. ASA score P 2 - A patient with mild systemic disease as per Jose L Lindquist MD. 12:10:23 Post procedure rhythm: unchanged. 12:10:26 Estimated blood loss: 5 ml 12:10:27 Post procedure instruction explained to patient.Patient verbalizes understanding. 12:10:27 Patient needs reinforcement of post procedure teaching. 12:10:59 Procedure and supply charges have been captured, reviewed, submitted and are correct. 12:11:03 Procedure Complication : No complications 12:11:07 [facility] Findings: mild to moderate CAD (<70%) 12:11:11 Operative report dictated upon procedure completion. 12:11:11 See physician's report for complete and final results. 12:12:49 Solumedrol 125 mg I.V. was administered by Shaunna Floyd RN; Per physician; Verbal order read back and verified. 12:13:00 Vital chart was stopped 12:13:05 Report given to [facility]. 12:13:08 Patient transfered to [facility] with Bed. 12:13:11 Procedure ended. 12:13:11 Full Disclosure recording stopped 12:13:21 End room use (Document Last) 12:14:13 End room use (Document Last) Device Usage Item Name Manufacture Quantity Catalog Hospital Part Current Minimal L ot# / Number Charge Number Stock Stock Serial# Code ACIST Acist 1 69105 659202 [id number] [id number] 20 Syringe Medical (70819) Systems Inc Bag Microtek 1 116345 21198 046622 5 Decanter Medical Inc. () Medline Medline 1 [id number] 568619 46029 801070 5 Cath Pack ([id number]) ACIST Hand Acist 1 12670 011001 833615 849964 5 Control Medical (69498) Systems Inc ACIST Acist 1 68577 924508 938413 945136 5 Manifold Medical (97991) Systems Inc DIAGNOSTIC Cardinal 1 [id number] 418667 71205 409610 30 Multipack Health 5Fr catheter set (NM9938) SHEATH 5FR Terumo 1 TNT306 798491 739678 898731 5 Redstone (CAK272) EMERALD Cardinal 1 105-560 379324 301686 752179 5 Guide Wire [facility] (484-998) MULTIPACK Cardinal 1 223394 5 JL 4.0 5Fr Health catheter MULTIPACK Cardinal 1 450092 5 3DRC 5Fr Health catheter MULTIPACK Cardinal 1 696077 5 Pigtail 5 Health Fr catheter EXOSEAL 5Fr Cardinal 1 EX500 132714 578735 [id number] 10 (EX500) Health Signature Audit [place] Stage Time Signature Unsigned Intra-Procedure 03/13/2020 Reta Goetz 12:14:13 PM RT(R) Intra-Procedure 03/13/2020 Shaunna Floyd RN 12:14:31 PM Intra-Procedure 03/13/2020 Jose L Cordoba 12:16:50 PM Mundo HOLLIDAY Signatures Performing Physician : Signature : Jose L Lindquist MD Date : Time : Monitor : Reta Goetz Signature : RT Date : Time : Nurse : Shaunna Floyd RN Signature : Date : Time : [address] [place] [address]
[~2020-03-12 22:24] MED LIST changes: +DICLOFENAC SODI50 MG PO; +NEURONTIN 300300 MG PO; +PRAVACHOL40 MG PO; +VISTARIL25 MG PO; +WELLBUTRIN XL150 M1 PO; +ZETIA10 MG PO; +ZOFRAN4 MG PO; +ZYPREXA10 MG PO
[2020-03-12 22:52] LABS: BASOPHILS 0.4 % (0-2); EOSINOPHILS 1.7 % (0-7); HEMATOCRIT 38.9 % (36.0-48.0); HEMOGLOBIN 12.8 g/dL (12-16); IMMATURE GRANULOCYTES 0.3 % (0-5); LYMPHOCYTES 51.3 % (15-50); MCH 31.8 pg (26.0-34.0); MCHC 32.9 g/dL (31.0-37.0); MCV 96.8 fL (80.0-100.0); MEAN PLATELET VOLUME 8.8 fL (7.4-10.4); MONOCYTES 7.5 % (2-11); NEUTROPHILS 38.8 % (40-80); PLATELET COUNT 337 10x3/uL (130-400); RBC 4.02 10x6/uL (4.00-5.40); RDW 12.2 % (11.5-14.5); WBC 10.8 10x3/uL (4.8-10.8)
[2020-03-12 23:07] LABS: CALC OSMOLALITY 274 mosm/kg (275-300); CALCIUM 9.3 mg/dL (8.5-10.1); CARBON DIOXIDE 28.5 mmol/L (21.0-32.0); CHLORIDE - SERUM 102 mmol/L (98-107); CREATININE - SERUM 1.1 mg/dL (0.6-1.3); GLUCOSE 109 mg/dL (74-106); SODIUM 137 mmol/L (136-145); UREA NITROGEN 12 mg/dL (7-18); eGFR NON AFRICAN AMERICAN 57 mL/min (90-120)
[2020-03-12 23:14] LABS: APTT 31.4 SECONDS (22.8-39.4); INR 0.93 (0.85-1.17); PROTIME 12.5 SECONDS (11.6-15.0)
[2020-03-12 23:20] LABS: ALBUMIN 3.7 g/dL (3.4-5.0); ALKALINE PHOSPHATASE 81 U/L (30-120); ALT (SGPT) 29 U/L (10-68); BILIRUBIN - TOTAL 0.26 mg/dL (0.2-1.3); CKMB 0.2 U/L (0.0-3.6); CREATINE KINASE 110 UL (21-215); PRO BNP 16 pg/mL (0-125); PROTEIN - SERUM 8.1 g/dL (6.4-8.2); TROPONIN-I < 0.017 ng/mL (0.000-0.060)
[2020-03-13] VITALS: BP 125/77
[2020-03-13] MEDS ORDERED: SINEQUAN25 MG PO (01:07)
[2020-03-13] MEDS ORDERED: RESTORIL15 MG PO (01:09)
[2020-03-13] MEDS ORDERED: VITAMIN D5000 UNI1 PO (01:11)
[2020-03-13 01:12] VITALS: Ht 167.6 cm; Wt 68.6 kg
[2020-03-13 04:00] VITALS: BP 125/77
[2020-03-13 06:16] LABS: HEMATOCRIT 36.8 % (36.0-48.0); HEMOGLOBIN 11.9 g/dL (12-16); MCH 31.5 pg (26.0-34.0); MCHC 32.3 g/dL (31.0-37.0); MCV 97.4 fL (80.0-100.0); PLATELET COUNT 325 10x3/uL (130-400); RBC 3.78 10x6/uL (4.00-5.40); RDW 12.3 % (11.5-14.5); WBC 8.6 10x3/uL (4.8-10.8)
[2020-03-13 06:37] LABS: ALBUMIN 3.2 g/dL (3.4-5.0); ALKALINE PHOSPHATASE 69 U/L (30-120); ALT (SGPT) 26 U/L (10-68); BILIRUBIN - TOTAL 0.27 mg/dL (0.2-1.3); CALC OSMOLALITY 279 mosm/kg (275-300); CALCIUM 8.7 mg/dL (8.5-10.1); CARBON DIOXIDE 29.2 mmol/L (21.0-32.0); CHLORIDE - SERUM 106 mmol/L (98-107); CKMB 0.2 U/L (0.0-3.6); CREATINE KINASE 73 UL (21-215); CREATININE - SERUM 0.9 mg/dL (0.6-1.3); GLUCOSE 111 mg/dL (74-106); POTASSIUM - SERUM 3.6 mmol/L (3.5-5.1); PROTEIN - SERUM 7.1 g/dL (6.4-8.2); SODIUM 140 mmol/L (136-145); TROPONIN-I < 0.017 ng/mL (0.000-0.060); UREA NITROGEN 12 mg/dL (7-18); eGFR NON AFRICAN AMERICAN 72 mL/min (90-120)
--- NOTE | 2020-03-13 09:30 | NUR ---
CONSENTS SIGNED FOR [facility]. WILL CONT. PLAN OF CARE.
[2020-03-13 11:02] LABS: CKMB 0.3 U/L (0.0-3.6); CREATINE KINASE 81 UL (21-215); TROPONIN-I < 0.017 ng/mL (0.000-0.060)
--- NOTE | 2020-03-13 11:45 | NUR ---
PRE-OPS GIVEN.. TO TRIPE WASHER BY BED.
[2020-03-13 11:53] LABS: CHOL - HDL RATIO 5.9 ratio (2.3-4.1); LDL-HDL RATIO 4.4 ratio (1.5-3.5)
--- NOTE | 2020-03-13 12:15 | NUR ---
PRE-OPS GIVEN. TO PUBLIC HEALTH POLICY ANALYST BY BED.
--- NOTE | 2020-03-13 12:15 | NUR ---
BACK FROM METAL SPRAY OPERATOR. VS WNL. RIGHT GROIN STABLE WITHOUT BLEEDING OR HEMATOMA NOTED. WILL MONITOR.
--- NOTE | 2020-03-13 14:23 | NUR ---
BED REST UP. GROIN STABLE.
[2020-03-13 15:15] LABS: EOSINOPHILS 3 % (0-7); LYMPHOCYTES 56 % (15-50); MONOCYTES 6 % (2-11); NEUTROPHILS 35 % (40-80); PLATELET ESTIMATE NORMAL
[2020-03-13 17:23] LABS: CKMB 0.8 U/L (0.0-3.6); CREATINE KINASE 95 UL (21-215)
[2020-03-13 17:26] LABS: TROPONIN-I < 0.017 ng/mL (0.000-0.060)
--- NOTE | 2020-03-13 17:50 | NUR ---
IV AND TELEMETRY DCD. DC PLANS GIVEN. UNDERSTANDING VOICED.
== END 2020-03-13 17:51 | disposition home or self-care (01) ==
LOC: D.ER 22:24 → D.M2 23:33 → OBSVTIME 23:33 → D.M2 03-13 17:51
PROVIDERS: Family Medicine; Internal Medicine Interventional Cardiology; ADMIT Family Medicine; ATTEND Family Medicine
DX: I20.0 Unstable angina (principal); F17.203 Nicotine dependence unspecified, with withdrawal; D64.9 Anemia, unspecified; E78.5 Hyperlipidemia, unspecified; F20.9 Schizophrenia, unspecified; G89.29 Other chronic pain; I24.9 Acute ischemic heart disease, unspecified